=== PATIENT | female | born 1970 | race Two or more races ===

== ENCOUNTER → 2019-02-23 | Outpatient (CLI) | payer BC ==
[2019-02-23 17:22] LABS: ABSOLUTE BASOPHILS # (AUTO) 0.1 10^3/uL (0.0-0.2); ABSOLUTE EOSINOPHILS # (AUTO) 0.2 10^3/uL (0.0-0.6); ABSOLUTE LYMPHOCYTES (AUTO) 2.4 10^3/uL (0.5-4.7); ABSOLUTE MONOCYTES (AUTO) 0.9 10^3/uL (0.1-1.4); ABSOLUTE NEUT (AUTO) 6.8 10^3/uL (1.7-8.2); BASOPHILS % (AUTO) 1.2 % (0-2); EOSINOPHILS % (AUTO) 1.8 % (0-6); HEMATOCRIT 39.7 % (36.0-47.0); HEMOGLOBIN 13.5 g/dL (12.0-15.5); MEAN CORPUSCULAR HEMOGLOBIN 33.5 pg (27.0-33.4); MEAN CORPUSCULAR HGB CONC 33.9 g/dL (32.0-36.0); MEAN CORPUSCULAR VOLUME 99 fl (80-97); MONOCYTES % (AUTO) 8.7 % (3-13); PLATELET COUNT 441 10^3/uL (150-450); RED BLOOD COUNT 4.02 10^6/uL (3.72-5.28); RED CELL DISTRIBUTION WIDTH 14.1 % (11.5-14.0); SEGMENTED NEUTROPHILS % (AUTO) 65.3 % (42-78); TOTAL CELLS COUNTED % (AUTO) 100 %; WHITE BLOOD COUNT 10.5 10^3/uL (4.0-10.5)
== END ==
LOC: OD 15:40
DX: S83.231D Complex tear of medial meniscus, current injury, right knee, subsequent encounter (principal); X58.XXXD Exposure to other specified factors, subsequent encounter
CPT/HCPCS: 36415; 85025

== ENCOUNTER 2020-07-01 09:51 | Inpatient (IN) | payer BC ==
[2020-07-01] MEDS ORDERED: NORMAL SALINE 1000 ML 1,000 ML IV ONE (10:33)
[2020-07-01] MEDS ORDERED: DEXAMETHASONE SOD PHOS INJ 10 MG/1 ML VIAL IV ONE (10:36)
--- NOTE | 2020-07-01 10:56 | RADIOLOGY REPORT (SQ) ---
EXAM DESCRIPTION: CHEST SINGLE VIEW IMAGES COMPLETED DATE/TIME: 07/01/2020 10:23 am REASON FOR STUDY: sob COMPARISON: None. EXAM PARAMETERS: NUMBER OF VIEWS: One view. TECHNIQUE: Single frontal radiographic view of the chest acquired. RADIATION DOSE: NA LIMITATIONS: Portable technique. FINDINGS: LUNGS AND PLEURA: The appearance of hazy opacification of the right hemithorax may be due in part to technique/air gap. No focal consolidation. No pleural effusion. No pneumothorax. MEDIASTINUM AND HILAR STRUCTURES: No masses. Contour normal. HEART AND VASCULAR STRUCTURES: Heart normal in size. Normal vasculature. BONES: No acute findings. HARDWARE: None in the chest. OTHER: No other significant finding. IMPRESSION: Limited examination. Favor hazy opacification of the right hemithorax to be on the basi s of artifact ; acute pulmonary process is not excluded. Recommend dedicated PA/Lat chest imaging wh en feasible. TECHNICAL DOCUMENTATION: JOB ID: [id number] 2010 [employer]- All Rights Reserved Reading location - IP/workstation name: [email or web address]
[2020-07-01 11:04] LABS: ABSOLUTE LYMPHOCYTES (AUTO) 0.9 10^3/uL (0.5-4.7); ABSOLUTE MONOCYTES (AUTO) 0.4 10^3/uL (0.1-1.4); ABSOLUTE NEUT (AUTO) 4.6 10^3/uL (1.7-8.2); BASOPHILS % (AUTO) 0.4 % (0-2); EOSINOPHILS % (AUTO) 0.1 % (0-6); HEMATOCRIT 37.5 % (36.0-47.0); HEMOGLOBIN 13.1 g/dL (12.0-15.5); LYMPHOCYTES % (AUTO) 15.3 % (13-45); MEAN CORPUSCULAR HEMOGLOBIN 33.6 pg (27.0-33.4); MEAN CORPUSCULAR VOLUME 96 fl (80-97); MONOCYTES % (AUTO) 6.4 % (3-13); PLATELET COUNT 343 10^3/uL (150-450); RED CELL DISTRIBUTION WIDTH 15.4 % (11.5-14.0); SEGMENTED NEUTROPHILS % (AUTO) 77.8 % (42-78); TOTAL CELLS COUNTED % (AUTO) 100 %; VENOUS BLOOD BASE EXCESS -3.2 mmol/L; VENOUS BLOOD HCO3 21.5 mmol/L (20-32); VENOUS BLOOD PCO2 37.7 mmHg (35-63); VENOUS BLOOD PH 7.37 (7.30-7.42); WHITE BLOOD COUNT 5.8 10^3/uL (4.0-10.5)
[2020-07-01 11:16] LABS: INTERNATIONAL RATION (INR) 0.91; PROTHROMBIN TIME 12.5 SEC (11.4-15.4)
[2020-07-01 11:19] LABS: D-DIMER 1.53 ug/mL (0.00-0.50)
[2020-07-01 11:29] LABS: ALBUMIN 3.6 g/dL (3.5-5.0); ALKALINE PHOSPHATASE 93 U/L (38-126); ANION GAP 11 (5-19); ASPARTATE AMINO TRANSFERASE 64 U/L (14-36); BILIRUBIN,DIRECT 0.2 mg/dL (0.0-0.4); BILIRUBIN,TOTAL 0.3 mg/dL (0.2-1.3); BLOOD UREA NITROGEN 20 mg/dL (7-20); CALCIUM 7.8 mg/dL (8.4-10.2); CARBON DIOXIDE 24 mmol/L (22-30); CHLORIDE 87 mmol/L (98-107); GLUCOSE 119 mg/dL (75-110); POTASSIUM 3.2 mmol/L (3.6-5.0); TOTAL PROTEIN 6.9 g/dL (6.3-8.2)
[2020-07-01 12:04] LABS: C-REACTIVE PROTEIN 192.3 mg/L (<10.0)
[2020-07-01 12:48] LABS: A TYPE INFLUENZA AG NEGATIVE (NEGATIVE); B INFLUENZA AG NEGATIVE (NEGATIVE)
--- NOTE | 2020-07-01 13:37 | RADIOLOGY REPORT (SQ) ---
EXAM DESCRIPTION: CTA CHEST IMAGES COMPLETED DATE/TIME: 07/01/2020 12:13 pm REASON FOR STUDY: sobr/covid positive COMPARISON: Chest radiograph same date. TECHNIQUE: CT scan of the chest performed using helical scanning technique with dynamic intravenous contrast injection. Images reviewed with lung, soft tissue and bone windows. Reconstructed coronal and sagittal MPR images reviewed. Additional 3 dimensional post-processing performed to develop Maximal Intensity Projection images (CA P). All images stored on PACS. All CT scanners at this facility use dose modulation, iterative reconstruction, and/or weight based d osing when appropriate to reduce radiation dose to as low as reasonably achievable (ALARA). [facility]: Dose Right [facility]: CareDose [facility]: Dose Right [facility]: Teradose 4D [facility]: Info CONTRAST TYPE AND DOSE: contrast/concentration: Isovue 350.00 mmol/ml; Total Contrast Delivered: 75. 0 ml; Total Saline Delivered: 78.0 ml Contrast bolus optimized for the pulmonary arteries. Not diagnostic for the aorta. RENAL FUNCTION: GFR > 60. RADIATION DOSE: CT Rad equipment meets quality standard of care and radiation dose reduction techniq ues were employed. CTDIvol: 2.8 - 15.5 mGy. DLP: 581 mGy-cm. . LIMITATIONS: None. FINDINGS: LUNGS AND PLEURA: Trachea has normal caliber and appearance. No bronchial wall thickening or bronchiectasis. There is diffuse ground-glass attenuation throughout both lungs with relative sp aring of the superior segment left lower lobe. No focal confluent consolidation. Several solid pulm onary nodules are noted in the right lower lobe measuring up to 6 mm (image 33). No pleural effusion or pneumothorax. AORTA AND GREAT VESSELS: No aneurysm. Contrast bolus not optimized for the aorta. HEART: No pericardial effusion. No significant coronary artery calcifications. PULMONARY ARTERIES: No emboli visualized in the main pulmonary arteries or the segmental branches. HILAR AND MEDIASTINAL STRUCTURES: No identified masses or abnormal nodes. HARDWARE: None in the chest. UPPER ABDOMEN: Small hiatal hernia. Severe hepatic steatosis. THYROID AND OTHER SOFT TISSUES: No masses. No adenopathy. BONES: No acute or significant finding. 3D MIPS: Confirm above findings. OTHER: No other significant finding. IMPRESSION: 1. Diffuse ground-glass attenuation throughout both lungs, consistent with multifocal pneumonia. Sev eral areas demonstrate discrete solid nodularity. A follow-up CT of the chest in 3 months is recomme nded to confirm complete resolution. Commonly reported imaging features of COVID-19 pneumonia are p resent. Other processes such as influenza pneumonia and organizing pneumonia, as can be seen with roderick g toxicity and connective tissue disease, can cause a similar imaging pattern. PneTyp 2. Severe hepatic steatosis. 3. Small hiatal hernia. 4. No pulmonary embolism. COMMENT: Quality ID # [id number]: Final reports with documentation of one or more dose reduction techniques (e.g., Automated exposure control, adjustment of the mA and/or kV according to patient size, use of iterative reconstruction technique) TECHNICAL DOCUMENTATION: JOB ID: [id number] 2010 [employer]- All Rights Reserved Reading location - IP/workstation name: [email or web address]
[2020-07-01] MEDS ORDERED: CALCIUM GLUCONATE 1000 MG/10 ML INJ IV ONE (13:52)
[2020-07-01] MEDS ORDERED: NORMAL SALINE 500 ML IV ONE (13:53)
--- NOTE | 2020-07-01 13:59 | EKG REPORT ---
SEVERITY:- DEFECTIVE ECG - SINUS RHYTHM PROBABLE INFERIOR INFARCT, OLD CONSIDER ANTERIOR INFARCT REPEAT EKG WITH NO BASELINE TREMORS SOON FEASIBLE. : Confirmed by: Collin Hatch MD 01-Jul-2020 13:59:18
[2020-07-01] MEDS: POTASSI CL 20 MEQ/50 ML RIDER 20 MEQ/50 ML RTUPB IV SCH ×2 (14:20→16:41)
[2020-07-01 14:44] LABS: ARTERIAL BLOOD BASE EXCESS -4.1 mmol/L; ARTERIAL BLOOD FIO2 45%; ARTERIAL BLOOD H2CO3 0.98 mmol/L (1.05-1.35); ARTERIAL BLOOD HCO3 19.6 mmol/L (20-24); ARTERIAL BLOOD O2 SATURATION 96.7 % (94-98); ARTERIAL BLOOD PCO2 32.5 mmHg (35-45); ARTERIAL BLOOD PO2 86.5 mmHg (80-100); ARTERIAL BLOOD TOTAL CO2 20.6 mmol/L (21-25)
--- NOTE | 2020-07-01 14:55 | ER Document Report ---
Entered by CARLA MATHEWS SCRIBE 07/01/20 1027 Acting as scribe for:EMY JAMES MD ED Respiratory Problem - General Chief Complaint: Shortness Of Breath Stated Complaint: SHORT OF BREATH,COUGH,CONGESTION Primary Care Provider: SIRI IVERSON [NO COLIN MD] - Follow up as needed Mode of Arrival: Wheelchair Information source: Patient Notes: This 49 year old female patient with a history of hypertension who tested positive for COVID x2 weeks ago presents to the ED today for evaluation after waking up short of breath this morning. Nursing reports that the patient had O2 sats in the 70s on room air in the lobby. Patient reports associated fever, chills, sore throat, nausea without emesis, loss of taste/smell, pleuritic chest pain, and productive cough with bloody mucus. Denies any leg swelling. Denies history of asthma, COPD, or CHF. No known drug allergies. She mentions that she has been taking OTC Mucinex and Dayquil without resolve. TRAVEL OUTSIDE OF THE [place] IN LAST 30 DAYS: No - Related Data Allergies/Adverse Reactions: No Known Allergies Allergy (Verified 07/01/20 10:54) Past Medical History - General Information source: Patient - Social History Smoking Status: Unknown if Ever Smoked Smoking Education Provided: No Family History: Reviewed & Not Pertinent - Past Medical History Cardiac Medical History: Reports: Hx Hypertension Review of Systems - Review of Systems Constitutional: See HPI, Chills, Fever, Recent illness EENT: See HPI, Throat pain, Other - Loss of taste/smell Cardiovascular: Chest pain - pleuritic Respiratory: See HPI, Cough, Short of breath, Sputum Gastrointestinal: See HPI, Diarrhea, Nausea. denies: Vomiting Genitourinary: No symptoms reported Female Genitourinary: No symptoms reported Musculoskeletal: See HPI. denies: Leg swelling Skin: No symptoms reported Hematologic/Lymphatic: No symptoms reported Neurological/Psychological: No symptoms reported -: Yes All other systems reviewed and negative Physical Exam - Vital signs Vitals: Resp Pulse Ox 19 85 L 07/01/20 10:13 07/01/20 10:13 - General General appearance: Alert In distress: Moderate - secondary to respiratory distress - HEENT Head: Normocephalic, Atraumatic Eyes: Normal Pupils: PERRL - Respiratory Respiratory status: Respiratory distress - moderate, Tachypnea, Other - Hypoxic with O2 dats in the 70-80s via NRB Chest status: Pain with cough, Pain with deep breathing Breath sounds: Decreased air movement - Diminished breath sounds, Rales - in the left base Chest palpation: Normal - Cardiovascular Rhythm: Regular Heart sounds: Normal auscultation, S1 appreciated, S2 appreciated Murmur: No Friction rub: No Gallop: None auscultated - Abdominal Inspection: Normal Distension: No distension Bowel sounds: Normal Tenderness: Nontender - Abdomen soft Organomegaly: No organomegaly - Back Back: Normal, Nontender - Extremities General upper extremity: Normal inspection General lower extremity: Normal inspection. No: Edema - Neurological Neuro grossly intact: Yes Orientation: AAOx4 Gilbert Coma Scale Eye Opening: Spontaneous Gilbert Coma Scale Verbal: Oriented Gilbert Coma Scale Motor: Obeys Commands Gilbert Coma Scale Total: 15 - Psychological Associated symptoms: Normal affect, Normal mood - Skin Skin Temperature: Warm Skin Moisture: Dry Skin Color: Normal Course - Re-evaluation Re-evalutation: 07/01/20 17:33 Patient presented with extreme shortness of breath, fever,. Patient has known positive COVID-19 2 weeks ago from her urgent care clinic test. 1 week ago patient began to have shortness of breath worsening. - Vital Signs Vital signs: Temp Pulse Resp BP Pulse Ox 36 H 121/89 H 89 L 07/01/20 17:01 07/01/20 17:01 07/01/20 17:01 Vital signs unstable respiratory rate 36 with a pulse ox of 89. Patient was placed on a nonrebreather facemask without significant improvement therefore patient was placed on BiPAP. Once on BiPAP patient is had improved pulse oximetry and less tachypnea. - Laboratory Results Result Diagrams: 07/01/20 10:40 07/01/20 10:40 Laboratory Results Interpreted: 07/01/20 07/01/20 07/01/20 10:40 10:40 10:40 MCH 33.6 H RDW 15.4 H D-Dimer Carbonic Acid ABG pCO2 ABG HCO3 ABG Total CO2 Sodium 122.0 L Potassium 3.2 L Chloride 87 L Creatinine 1.40 H Est GFR ( Amer) 49 L Est GFR (MDRD) Non-Af 40 L Glucose 119 H Calcium 7.8 L AST 64 H Lactate Dehydrogenase 687 H C-Reactive Protein 192.3 H NT-Pro-B Natriuret Pep Urine Blood SARS-CoV-2 Rap RNA(RT-PCR) 07/01/20 07/01/20 07/01/20 10:40 10:40 12:13 MCH RDW D-Dimer 1.53 H Carbonic Acid ABG pCO2 ABG HCO3 ABG Total CO2 Sodium Potassium Chloride Creatinine Est GFR ( Amer) Est GFR (MDRD) Non-Af Glucose Calcium AST Lactate Dehydrogenase C-Reactive Protein NT-Pro-B Natriuret Pep 158 H Urine Blood SARS-CoV-2 Rap RNA(RT-PCR) POSITIVE H 07/01/20 07/01/20 14:25 15:45 MCH RDW D-Dimer Carbonic Acid 0.98 L ABG pCO2 32.5 L ABG HCO3 19.6 L ABG Total CO2 20.6 L Sodium Potassium Chloride Creatinine Est GFR ( Amer) Est GFR (MDRD) Non-Af Glucose Calcium AST Lactate Dehydrogenase C-Reactive Protein NT-Pro-B Natriuret Pep Urine Blood MODERATE H SARS-CoV-2 Rap RNA(RT-PCR) Patient has metabolic derangement with a sodium of 122, potassium of 3.2, creatinine 1.4 increased LDH increase C-reactive protein. Critical Laboratory Results Reviewed: Yes Attending or Supervising Physician who Reviewed Labs: EMY JAMES Radiology Results Radiology Results Interpreted: 07/01/20 13:38 Chest X-Ray 07/01/20 10:12 IMPRESSION: Limited examination. Favor hazy opacification of the right hemithorax to be on the basis of artifact ; acute pulmonary process is not ex cluded. Recommend dedicated PA/Lat chest imaging when feasible. Chest/Abdomen CTA 07/01/20 12:02 IMPRESSION: 1. Diffuse ground-glass attenuation throughout both lungs, consistent with multifocal pneumonia. Several areas demonstrate discrete solid nodularity. A follow-up CT of the chest in 3 months is recommended to confirm complete resolution. Commonly reported imaging features of COVID-19 pneumonia are present. Other processes such as influenza pneumonia and organizing pneumonia, as can be seen with drug toxicity and connective tissue disease, can cause a si milar imaging pattern. PneTyp 2. Severe hepatic steatosis. 3. Small hiatal hernia. 4. No pulmonary embolism. 07/01/20 17:36 Chest x-ray shows hazy opacification in the right hemithorax. CTA angiogram of the chest and abdomen shows diffuse groundglass in both lungs with multifocal pneumonia there is also discrete solid nodularity. Features of COVID-19 pneumonia present also severe hepatic steatosis small hiatal hernia and no evidence of pulmonary embolism. Critical Radiology Results Reviewed: Yes Attending or Supervising Physician who Reviewed Radiology: EMY JAMES - EKG Interpretation by Me Additional EKG results interpreted by me: 07/01/20 17:31 Twelve-lead EKG today at 1153 shows normal sinus rhythm artifact is present on this EKG and should be repeated once patient's not shimmering shivering. Nonetheless ventricular rate 81 left and atrial abnormality. Intraventricular conduction delay with a atypical right bundle branch block probable old inferior infarct consideration for an anterior infarct recommend that EKG be repeated. Critical Care Note - Critical Care Note Total time excluding time spent on procedures (mins): 45 - Patient with extreme shortness of breath on arrival requiring supplemental O2 support and eventually requiring BiPAP to maintain saturation over 90. Patient is COVID-19 multifocal pneumonia and and some metabolic derangements with sodium 122 potassium 3.2 creatinine up to 1.4. Discharge - Discharge Clinical Impression: Lab test positive for detection of COVID-19 virus, Pneumonia due to COVID-19 virus, Shortness of breath Condition: Serious Disposition: ADMITTED INPATIENT Admitting Provider: Qian Unit Admitted: [facility] Referrals: LOCAL,NO [NO LOCAL MD] - Follow up as needed I personally performed the services described in the documentation, reviewed and edited the documentation which was dictated to the scribe in my presence, and it accurately records my words and actions.
[2020-07-01 16:07] LABS: APPEARANCE,URINE CLEAR; BILIRUBIN,URINE NEGATIVE (NEGATIVE); COLOR,URINE STRAW; GLUCOSE, URINE NEGATIVE (NEGATIVE); KETONES,URINE NEGATIVE (NEGATIVE); LEUKOCYTE ESTERASE,URINE NEGATIVE (NEGATIVE); NITRITE,URINE NEGATIVE (NEGATIVE); PROTEIN,URINE NEGATIVE (NEGATIVE); UROBILINOGEN,URINE NEGATIVE mg/dL (<2.0)
--- NOTE | 2020-07-01 18:27 | PDOC H&P ---
History of Present Illness Admission Date/PCP: 07/01/20 15:34 Patient complains of: Shortness of breath History of Present Illness: SERGIO BASHIR is a 49 year old female with a past medical history of hypertension and depression who tested positive for Covid several weeks ago. She states over the last several days she has been noticing increasing shortness of breath. Yesterday the shortness of breath was more pronounced now as well as her cough. She reports coughing up some brownish tinged mucus with occasional blood streaks. Although short of breath she was able to rest and recover after 10 to 20 minutes but today the shortness of breath was worse and she presented to the emergency room. Imaging reveals Covid pneumonia. Past Medical History Cardiac Medical History: Reports: Hypertension Psychiatric Medical History: Reports: Depression Past Surgical History Past Surgical History: Reports: Orthopedic Surgery - Arthroscopy right knee Social History Information Source: Patient Lives with: Family Smoking Status: Unknown if Ever Smoked Electronic Cigarette use?: No Frequency of Alcohol Use: None Hx Recreational Drug Use: No Hx Prescription Drug Abuse: No - Advance Directive Resuscitation Status: Full Code Surrogate healthcare decision maker:: Family History Family History: Reviewed & Not Pertinent Parental Family History Reviewed: Yes Children Family History Reviewed: Yes Sibling(s) Family History Reviewed.: Yes Medication/Allergy Allergies/Adverse Reactions: No Known Allergies Allergy (Verified 07/01/20 10:54) Review of Systems All systems: reviewed and no additional remarkable complaints except as stated Constitutional: PRESENT: fever(s), headache(s) Respiratory: PRESENT: cough, dyspnea, sputum Gastrointestinal: PRESENT: diarrhea - For several days last week Musculoskeletal: PRESENT: back pain, other - Chest and back from repeated coughing Physical Exam Vital Signs: Temp Pulse Resp BP Pulse Ox 36 H 140/93 H 89 L 07/01/20 17:31 07/01/20 17:31 07/01/20 17:31 Intake & Output 06/30/20 07/01/20 07/02/20 06:59 06:59 06:59 Intake Total 1050 Balance 1050 General appearance: PRESENT: cooperative, severe distress, well-developed Head exam: PRESENT: atraumatic, normocephalic Ear exam: PRESENT: normal external ear exam. ABSENT: bleeding, drainage Mouth exam: PRESENT: other - BiPAP mask in place Neck exam: ABSENT: carotid bruit, JVD, lymphadenopathy Respiratory exam: PRESENT: rales, symmetrical, tachypnea, other - Markedly increased work of breathing. ABSENT: rhonchi, wheezes Cardiovascular exam: PRESENT: RRR, +S1, +S2, other - Difficult to auscultate due to BiPAP. ABSENT: bradycardia, diastolic murmur, irregular rhythm, systolic murmur, tachycardia GI/Abdominal exam: PRESENT: normal bowel sounds, soft. ABSENT: distended, tende rness Rectal exam: PRESENT: deferred Gentrourinary exam: ABSENT: indwelling catheter Extremities exam: ABSENT: calf tenderness, pedal edema Musculoskeletal exam: PRESENT: ambulatory, normal inspection. ABSENT: deformity, dislocation Neurological exam: PRESENT: alert, awake, oriented to person, oriented to place, oriented to time, oriented to situation, CN II-XII grossly intact. ABSENT: altered Psychiatric exam: PRESENT: anxious, appropriate affect - Affect reflects her clinical condition. ABSENT: agitated Focused psych exam: ABSENT: delusional, paranoid, restlessness Skin exam: PRESENT: dry, normal color, warm. ABSENT: rash Results Laboratory Results: 07/01/20 10:40 07/01/20 10:40 07/01/20 07/01/20 07/01/20 10:40 10:40 10:40 WBC 5.8 RBC 3.90 Hgb 13.1 Hct 37.5 MCV 96 MCH 33.6 H MCHC 35.0 RDW 15.4 H Plt Count 343 Seg Neutrophils % 77.8 Carbonic Acid HCO3/H2CO3 Ratio ABG pH ABG pCO2 ABG pO2 ABG HCO3 ABG O2 Saturation ABG Base Excess VBG pH 7.37 VBG pCO2 37.7 VBG HCO3 21.5 VBG Base Excess -3.2 FiO2 Sodium 122.0 L Potassium 3.2 L Chloride 87 L Carbon Dioxide 24 Anion Gap 11 BUN 20 Creatinine 1.40 H Est GFR ( Amer) 49 L Glucose 119 H Lactic Acid Calcium 7.8 L Magnesium Ferritin Total Bilirubin 0.3 AST 64 H Alkaline Phosphatase 93 C-Reactive Protein Total Protein 6.9 Albumin 3.6 Urine Color Urine Appearance Urine pH Ur Specific [place] Urine Protein Urine Glucose (UA) Urine Ketones Urine Blood Urine Nitrite Ur Leukocyte Esterase Urine WBC (Auto) Urine RBC (Auto) 07/01/20 07/01/20 07/01/20 10:40 10:40 10:40 WBC RBC Hgb Hct MCV MCH MCHC RDW Plt Count Seg Neutrophils % Carbonic Acid HCO3/H2CO3 Ratio ABG pH ABG pCO2 ABG pO2 ABG HCO3 ABG O2 Saturation ABG Base Excess VBG pH VBG pCO2 VBG HCO3 VBG Base Excess FiO2 Sodium Potassium Chloride Carbon Dioxide Anion Gap BUN Creatinine Est GFR ( Amer) Glucose Lactic Acid 1.9 Calcium Magnesium 2.0 Ferritin 121.00 Total Bilirubin AST Alkaline Phosphatase C-Reactive Protein 192.3 H Total Protein Albumin Urine Color Urine Appearance Urine pH Ur Specific [place] Urine Protein Urine Glucose (UA) Urine Ketones Urine Blood Urine Nitrite Ur Leukocyte Esterase Urine WBC (Auto) Urine RBC (Auto) 07/01/20 07/01/20 14:25 15:45 WBC RBC Hgb Hct MCV MCH MCHC RDW Plt Count Seg Neutrophils % Carbonic Acid 0.98 L HCO3/H2CO3 Ratio 20:1 ABG pH 7.40 ABG pCO2 32.5 L ABG pO2 86.5 ABG HCO3 19.6 L ABG O2 Saturation 96.7 ABG Base Excess -4.1 VBG pH VBG pCO2 VBG HCO3 VBG Base Excess FiO2 45% Sodium Potassium Chloride Carbon Dioxide Anion Gap BUN Creatinine Est GFR ( Amer) Glucose Lactic Acid Calcium Magnesium Ferritin Total Bilirubin AST Alkaline Phosphatase C-Reactive Protein Total Protein Albumin Urine Color STRAW Urine Appearance CLEAR Urine pH 7.0 Ur Specific [place] 1.010 Urine Protein NEGATIVE Urine Glucose (UA) NEGATIVE Urine Ketones NEGATIVE Urine Blood MODERATE H Urine Nitrite NEGATIVE Ur Leukocyte Esterase NEGATIVE Urine WBC (Auto) 0 Urine RBC (Auto) 0 07/01/20 10:40 NT-Pro-B Natriuret Pep 158 H Impressions: Chest X-Ray 07/01/20 10:12 IMPRESSION: Limited examination. Favor hazy opacification of the right hemithorax to be on the basis of artifact ; acute pulmonary process is not excluded. Recommend dedicated PA/Lat chest imaging when feasible. Chest/Abdomen CTA 07/01/20 12:02 IMPRESSION: 1. Diffuse ground-glass attenuation throughout both lungs, consistent with multifocal pneumonia. Several areas demonstrate discrete solid nodularity. A follow-up CT of the chest in 3 months is recommended to confirm complete resolution. Commonly reported imaging features of COVID-19 pneumonia are present. Other processes such as influenza pneumonia and organizing pneumonia, as can be seen with drug toxicity and connective tissue disease, can cause a similar imaging pattern. PneTyp 2. Severe hepatic steatosis. 3. Small hiatal hernia. 4. No pulmonary embolism. Assessment and Plan - Diagnosis (1) Acute respiratory failure with hypoxia Is this a current diagnosis for this admission?: Yes (2) Pneumonia due to COVID-19 virus Is this a current diagnosis for this admission?: Yes (3) Lab test positive for detection of COVID-19 virus Is this a current diagnosis for this admission?: Yes (4) Hypertension Qualifiers: Hypertension type: essential hypertension Qualified Code(s): I10 - Essential (primary) hypertension Is this a current diagnosis for this admission?: Yes (5) Depression Qualifiers: Depression Type: unspecified Qualified Code(s): F32.9 - Major depressive disorder, single episode, unspecified Is this a current diagnosis for this admission?: Yes (6) Hyponatremia Is this a current diagnosis for this admission?: Yes (7) Hypokalemia Is this a current diagnosis for this admission?: Yes (8) Hypocalcemia Is this a current diagnosis for this admission?: Yes - Plan Summary Summary: Covid pneumonia with acute hypoxic respiratory failure-intravenous steroids, supplements, remdesivir and ivermectin. Currently on BiPAP. Wean as tolerated. She had discolored sputum and she will be on antibiotic therapy to cover bacterial pneumonia as well. Despite blood-streaked sputum we will initiate therapeutic Lovenox at this time and monitor closely as her D-dimer was positive. Hypokalemia, hypocalcemia and hyponatremia-combination of infection, diarrhea and poor intake. Provide normal saline and supplement electrolytes based on laboratory studies Hypertension-pressures were low on admission. Currently holding antihypertensive medications. Resume based on blood pressure. Depression-holding citalopram temporarily. High risk interaction with azithromycin. Will likely resume within a day or 2. We will need to monitor QT interval. - Time Time Spent with patient: 35 or more minutes Medications reviewed and adjusted accordingly: Yes Anticipated Discharge Disposition: Home with Home Health Anticipated Discharge Timeframe: Unknown - Inpatient Certification Based on my medical assessment, after consideration of the patient's comorbidities, presenting symptoms, or acuity I expect that the services needed warrant INPATIENT care.: Yes I certify that my determination is in accordance with my understanding of Medicare's requirements for reasonable and necessary INPATIENT services [42 CFR 412.3e].: Yes Medical Necessity: Need Close Monitoring Due to Risk of Patient Decompensation, Need For IV Fluids, Need For Continuous Telemetry Monitoring, Need for IV Antibiotics Post Hospital Care: D/C or Transfer Summary
[2020-07-01] MEDS ORDERED: IVERMECTIN 3 MG TABLET PO ONE (19:00)
[2020-07-01] MEDS: ALBUTEROL SULFATE HFA (90 MCG/PUFF) 8 GM MDI IH SCH ×2 (19:17→22:20)
[2020-07-01] MEDS: ACETAMINOPHEN 325 MG TABLET PO PRN (19:31)
[2020-07-01] MEDS: GUAIFENESIN SYRP 200 MG/10 ML UDC PO PRN (19:31)
[2020-07-01] MEDS ORDERED: IVERMECTIN 3 MG TABLET ONE (19:42)
[2020-07-01] MEDS: MELATONIN 5 MG TABLET PO SCH (22:19)
[2020-07-01] MEDS: CEFTRIAXONE 1 GM/D5W RTU 1 GM/50 ML RTUPB IV SCH (22:19)
[2020-07-01] MEDS: METHYLPREDNISOLONE INJ 40 MG/1 ML SDV IV SCH (22:20)
[2020-07-01] MEDS ORDERED: ALBUTEROL SULFATE 0.083% NEB 2.5 MG/3 ML AMPUL NEB PRN (22:21)
[2020-07-01] MEDS ORDERED: LORAZEPAM INJ 2 MG/1 ML VIAL IV PRN (22:23)
[2020-07-01] MEDS: NORMAL SALINE 1000 ML 1,000 ML IV PRN (22:32)
[2020-07-02] MEDS: MORPHINE SULFATE 10 MG/ML INJ IV PRN ×5 (00:14→21:22)
[2020-07-02] MEDS: ALBUTEROL SULFATE HFA (90 MCG/PUFF) 8 GM MDI IH SCH ×6 (01:32→21:37)
[2020-07-02] MEDS: METHYLPREDNISOLONE INJ 40 MG/1 ML SDV IV SCH ×3 (05:40→23:53)
[2020-07-02] MEDS: PANTOPRAZOLE SODIUM 40 MG TABLET.DR PO SCH (05:40)
[2020-07-02 06:18] LABS: ABSOLUTE LYMPHOCYTES (AUTO) 0.7 10^3/uL (0.5-4.7); ABSOLUTE MONOCYTES (AUTO) 0.6 10^3/uL (0.1-1.4); ABSOLUTE NEUT (AUTO) 7.1 10^3/uL (1.7-8.2); BASOPHILS % (AUTO) 0.3 % (0-2); HEMATOCRIT 37.8 % (36.0-47.0); HEMOGLOBIN 13.2 g/dL (12.0-15.5); LYMPHOCYTES % (AUTO) 8.8 % (13-45); MEAN CORPUSCULAR HEMOGLOBIN 33.7 pg (27.0-33.4); MEAN CORPUSCULAR HGB CONC 34.8 g/dL (32.0-36.0); MEAN CORPUSCULAR VOLUME 97 fl (80-97); MONOCYTES % (AUTO) 6.8 % (3-13); PLATELET COUNT 386 10^3/uL (150-450); RED CELL DISTRIBUTION WIDTH 15.3 % (11.5-14.0); SEGMENTED NEUTROPHILS % (AUTO) 84.1 % (42-78); TOTAL CELLS COUNTED % (AUTO) 100 %; WHITE BLOOD COUNT 8.4 10^3/uL (4.0-10.5)
[2020-07-02 06:42] LABS: ALKALINE PHOSPHATASE 102 U/L (38-126); ANION GAP 12 (5-19); ASPARTATE AMINO TRANSFERASE 68 U/L (14-36); BILIRUBIN,DIRECT 0.3 mg/dL (0.0-0.4); BILIRUBIN,TOTAL 0.5 mg/dL (0.2-1.3); BLOOD UREA NITROGEN 12 mg/dL (7-20); CALCIUM 8.3 mg/dL (8.4-10.2); CARBON DIOXIDE 20 mmol/L (22-30); CHLORIDE 99 mmol/L (98-107); GLUCOSE 130 mg/dL (75-110); TOTAL PROTEIN 7.4 g/dL (6.3-8.2)
[2020-07-02 06:46] LABS: POTASSIUM 4.2 mmol/L (3.6-5.0)
[2020-07-02] MEDS: NORMAL SALINE 1000 ML 1,000 ML IV PRN (06:59)
[2020-07-02 07:18] LABS: ALBUMIN 3.9 g/dL (3.5-5.0)
[2020-07-02] MEDS ORDERED: REMDESIVIR 200 MG in NORMAL SALINE 250 ML IV ONE (10:00)
[2020-07-02] MEDS ORDERED: AZITHROMYCIN 500 MG in DEXTROSE 5%-WATER 250 ML IV SCH (10:00)
[2020-07-02] MEDS ORDERED: INFLUENZA QUAD (6MOS+) 2020-21 VAC 0.5 ML SYR IM ONE (10:15)
[2020-07-02] MEDS: ENOXAPARIN SODIUM INJ 100 MG/1 ML DISP.SYRIN SUBCUT SCH ×2 (11:30→21:21)
[2020-07-02] MEDS: ASCORBIC ACID 500 MG TABLET PO SCH ×2 (11:30→17:19)
[2020-07-02] MEDS: CHOLECALCIFEROL (D3) 1,000 UNIT (25 MCG) TABLET PO SCH (11:30)
[2020-07-02] MEDS: ZINC SULFATE 220 MG CAPSULE PO SCH (11:30)
[2020-07-02] MEDS: AZITHROMYCIN 250 MG TABLET PO SCH (11:55)
--- NOTE | 2020-07-02 12:17 | PDOC PROGRESS REPORT ---
Subjective Date:: 07/02/20 Subjective:: Patient still exhibits increased work of breathing. Remains on BiPAP. Still wi th tachypnea. Starting remdesivir today. Reason For Visit: COVID PNEUMONIA,HYPERTENSION,DEPRESSION,DIARRHEA Physical Exam Vital Signs: Temp Pulse Resp BP Pulse Ox 98 F 33 H 134/84 H 99 07/02/20 09:58 07/02/20 11:18 07/02/20 09:02 07/02/20 11:18 Intake & Output 07/01/20 07/02/20 07/03/20 06:59 06:59 06:59 Intake Total 2150 Balance 2150 Weight 84.822 kg General appearance: PRESENT: cooperative, well-developed, other - Moderate dis tress. BiPAP in place. Still tachypneic. Head exam: PRESENT: atraumatic, normocephalic Respiratory exam: PRESENT: rales, symmetrical, tachypnea, wheezes - Sporadic wheeze, other - Increased work of breathing with decreased inspiratory phase. ABSENT: rhonchi Cardiovascular exam: PRESENT: RRR, +S1, +S2. ABSENT: bradycardia, diastolic murmur, irregular rhythm, systolic murmur, tachycardia GI/Abdominal exam: PRESENT: diminished bowel sounds, soft. ABSENT: tenderness Rectal exam: PRESENT: deferred Gentrourinary exam: ABSENT: indwelling catheter Extremities exam: ABSENT: pedal edema Musculoskeletal exam: PRESENT: deformity, dislocation, normal inspection. ABSENT: ambulatory - Secondary to dyspnea Neurological exam: PRESENT: alert, awake, oriented to person, oriented to place, oriented to time, oriented to situation, CN II-XII grossly intact. ABSENT: altered Psychiatric exam: PRESENT: appropriate affect - Affect reflects her serious cli nical condition.. ABSENT: agitated, anxious Focused psych exam: ABSENT: delusional, paranoid, restlessness Skin exam: PRESENT: dry, warm, other - Facial flushing. ABSENT: rash Results Laboratory Results: 07/02/20 05:38 07/02/20 05:38 07/01/20 07/01/20 07/01/20 10:40 14:25 15:45 WBC RBC Hgb Hct MCV MCH MCHC RDW Plt Count Seg Neutrophils % Carbonic Acid 0.98 L HCO3/H2CO3 Ratio 20:1 ABG pH 7.40 ABG pCO2 32.5 L ABG pO2 86.5 ABG HCO3 19.6 L ABG O2 Saturation 96.7 ABG Base Excess -4.1 FiO2 45% Sodium Potassium Chloride Carbon Dioxide Anion Gap BUN Creatinine Est GFR ( Amer) Glucose Calcium Magnesium 2.0 Total Bilirubin AST Alkaline Phosphatase Total Protein Albumin Urine Color STRAW Urine Appearance CLEAR Urine pH 7.0 Ur Specific [place] 1.010 Urine Protein NEGATIVE Urine Glucose (UA) NEGATIVE Urine Ketones NEGATIVE Urine Blood MODERATE H Urine Nitrite NEGATIVE Ur Leukocyte Esterase NEGATIVE Urine WBC (Auto) 0 Urine RBC (Auto) 0 07/02/20 07/02/20 05:38 05:38 WBC 8.4 RBC 3.90 Hgb 13.2 Hct 37.8 MCV 97 MCH 33.7 H MCHC 34.8 RDW 15.3 H Plt Count 386 Seg Neutrophils % 84.1 H Carbonic Acid HCO3/H2CO3 Ratio ABG pH ABG pCO2 ABG pO2 ABG HCO3 ABG O2 Saturation ABG Base Excess FiO2 Sodium 131.0 L Potassium 4.2 D Chloride 99 Carbon Dioxide 20 L Anion Gap 12 BUN 12 Creatinine 0.70 Est GFR ( Amer) > 60 Glucose 130 H Calcium 8.3 L Magnesium Total Bilirubin 0.5 AST 68 H Alkaline Phosphatase 102 Total Protein 7.4 Albumin 3.9 Urine Color Urine Appearance Urine pH Ur Specific [place] Urine Protein Urine Glucose (UA) Urine Ketones Urine Blood Urine Nitrite Ur Leukocyte Esterase Urine WBC (Auto) Urine RBC (Auto) 07/01/20 10:40 NT-Pro-B Natriuret Pep 158 H Impressions: Chest X-Ray 07/01/20 10:12 IMPRESSION: Limited examination. Favor hazy opacification of the right hemithorax to be on the basis of artifact ; acute pulmonary process is not excluded. Recommend dedicated PA/Lat chest imaging when feasible. Chest/Abdomen CTA 07/01/20 12:02 IMPRESSION: 1. Diffuse ground-glass attenuation throughout both lungs, consistent with multifocal pneumonia. Several areas demonstrate discrete solid nodularity. A follow-up CT of the chest in 3 months is recommended to confirm complete resolution. Commonly reported imaging features of COVID-19 pneumonia are present. Other processes such as influenza pneumonia and organizing pneumonia, as can be seen with drug toxicity and connective tissue disease, can cause a similar imaging pattern. PneTyp 2. Severe hepatic steatosis. 3. Small hiatal hernia. 4. No pulmonary embolism. Assessment and Plan - Diagnosis (1) Acute respiratory failure with hypoxia Is this a current diagnosis for this admission?: Yes (2) Pneumonia due to COVID-19 virus Is this a current diagnosis for this admission?: Yes (3) Lab test positive for detection of COVID-19 virus Is this a current diagnosis for this admission?: Yes (4) Hypertension Qualifiers: Hypertension type: essential hypertension Qualified Code(s): I10 - Essential (primary) hypertension Is this a current diagnosis for this admission?: Yes (5) Depression Qualifiers: Depression Type: unspecified Qualified Code(s): F32.9 - Major depressive disorder, single episode, unspecified Is this a current diagnosis for this admission?: Yes (6) Hyponatremia Is this a current diagnosis for this admission?: Yes (7) Hypokalemia Is this a current diagnosis for this admission?: Yes (8) Hypocalcemia Is this a current diagnosis for this admission?: Yes - Plan Summary Summary: 07/01/2020 Covid pneumonia with acute hypoxic respiratory failure-intravenous steroids, supplements, remdesivir and ivermectin. Currently on BiPAP. Wean as tolerated. She had discolored sputum and she will be on antibiotic therapy to cover bacterial pneumonia as well. Despite blood-streaked sputum we will initiate therapeutic Lovenox at this time and monitor closely as her D-dimer was positive. Hypokalemia, hypocalcemia and hyponatremia-combination of infection, diarrhea and poor intake. Provide normal saline and supplement electrolytes based on laboratory studies Hypertension-pressures were low on admission. Currently holding antihypertensive medications. Resume based on blood pressure. Depression-holding citalopram temporarily. High risk interaction with azithromycin. Will likely resume within a day or 2. We will need to monitor QT interval. 07/02/2020 Covid pneumonia-still with some respiratory distress. Unable to decrease FiO2 or BiPAP settings yet. Received first dose of ivermectin yesterday. Starting remdesivir. Temporarily increase methylprednisolone to 40 every 6. Monitor closely. Continue antibiotic regimen and supplements as well. Elevated [id number] therapeutic Lovenox. Recheck D-dimer tomorrow. Electrolyte abnormalities-serum potassium now normal. Serum sodium significantly improved up to 131. Serum calcium improved and at 8.3. Repeat inflammatory markers tomorrow. Depression-benzodiazepine therapy available. Holding citalopram due to interaction with azithromycin. - Time Time Spent with patient: Less than 15 minutes Medications reviewed and adjusted accordingly: Yes Anticipated Discharge Disposition: Unknown Anticipated Discharge Timeframe: Unknown
[2020-07-02] MEDS: LISINOPRIL 10 MG TABLET PO SCH (13:14)
[2020-07-02] MEDS: HYDROCHLOROTHIAZIDE 25 MG TABLET PO SCH (13:15)
[2020-07-02] MEDS: CEFTRIAXONE 1 GM/D5W RTU 1 GM/50 ML RTUPB IV SCH (21:20)
[2020-07-02] MEDS: MELATONIN 5 MG TABLET PO SCH (21:21)
[2020-07-02] MEDS: GUAIFENESIN SYRP 200 MG/10 ML UDC PO PRN (23:36)
[2020-07-03] MEDS: ALBUTEROL SULFATE HFA (90 MCG/PUFF) 8 GM MDI IH SCH ×3 (02:45→21:57)
[2020-07-03] MEDS: MORPHINE SULFATE 10 MG/ML INJ IV PRN ×4 (03:01→22:03)
[2020-07-03 05:12] LABS: HEMOGLOBIN 12.7 g/dL (12.0-15.5); MEAN CORPUSCULAR HEMOGLOBIN 33.1 pg (27.0-33.4); MEAN CORPUSCULAR HGB CONC 34.2 g/dL (32.0-36.0); MEAN CORPUSCULAR VOLUME 97 fl (80-97); PLATELET COUNT 378 10^3/uL (150-450); RED BLOOD COUNT 3.82 10^6/uL (3.72-5.28); RED CELL DISTRIBUTION WIDTH 15.2 % (11.5-14.0); WHITE BLOOD COUNT 9.9 10^3/uL (4.0-10.5)
[2020-07-03] MEDS: METHYLPREDNISOLONE INJ 40 MG/1 ML SDV IV SCH ×4 (05:59→23:31)
[2020-07-03] MEDS: PANTOPRAZOLE SODIUM 40 MG TABLET.DR PO SCH (05:59)
[2020-07-03 06:06] LABS: ALKALINE PHOSPHATASE 132 U/L (38-126); ANION GAP 14 (5-19); ASPARTATE AMINO TRANSFERASE 88 U/L (14-36); BILIRUBIN,DIRECT 0.3 mg/dL (0.0-0.4); BILIRUBIN,TOTAL 0.4 mg/dL (0.2-1.3); BLOOD UREA NITROGEN 9 mg/dL (7-20); C-REACTIVE PROTEIN 75.6 mg/L (<10.0); CALCIUM 8.7 mg/dL (8.4-10.2); CARBON DIOXIDE 17 mmol/L (22-30); CHLORIDE 100 mmol/L (98-107); GLUCOSE 133 mg/dL (75-110); POTASSIUM 3.9 mmol/L (3.6-5.0); TOTAL PROTEIN 7.3 g/dL (6.3-8.2)
[2020-07-03] MEDS: NORMAL SALINE 1000 ML 1,000 ML IV PRN ×2 (06:19→15:38)
[2020-07-03] MEDS ORDERED: (PENDING PHARMACY ID) (Lisinopril/Hydrochlorothiazide [Lisinopril-Hctz 20-25 Mg Tab] 1 EAC PO SCH (10:00)
[2020-07-03] MEDS ORDERED: IVERMECTIN 3 MG TABLET PO ONE (10:00)
[2020-07-03] MEDS: ASCORBIC ACID 500 MG TABLET PO SCH ×2 (10:14→17:22)
[2020-07-03] MEDS: ZINC SULFATE 220 MG CAPSULE PO SCH (10:14)
[2020-07-03] MEDS: CHOLECALCIFEROL (D3) 1,000 UNIT (25 MCG) TABLET PO SCH (10:15)
[2020-07-03] MEDS: HYDROCHLOROTHIAZIDE 25 MG TABLET PO SCH (10:18)
[2020-07-03] MEDS: AZITHROMYCIN 250 MG TABLET PO SCH (10:19)
[2020-07-03] MEDS: LISINOPRIL 10 MG TABLET PO SCH (10:19)
[2020-07-03] MEDS: ENOXAPARIN SODIUM INJ 100 MG/1 ML DISP.SYRIN SUBCUT SCH ×2 (10:27→21:56)
[2020-07-03] MEDS ORDERED: ENOXAPARIN SODIUM INJ 100 MG/1 ML DISP.SYRIN SUBCUT ONE (10:27)
[2020-07-03] MEDS: REMDESIVIR 100 MG in NORMAL SALINE 250 ML IV SCH (11:05)
--- NOTE | 2020-07-03 14:47 | PDOC PROGRESS REPORT ---
Subjective Date:: 07/03/20 Subjective:: Shortness of breath. No appetite Reason For Visit: COVID PNEUMONIA,HYPERTENSION,DEPRESSION,DIARRHEA Physical Exam Vital Signs: Temp Pulse Resp BP Pulse Ox 98.6 F 104 H 27 H 145/91 H 92 07/03/20 10:00 07/03/20 07:36 07/03/20 08:00 07/03/20 07:36 07/03/20 08:00 Intake & Output 07/02/20 07/03/20 07/04/20 06:59 06:59 06:59 Intake Total 2150 2590 250 Balance 2150 2590 250 Weight 84.822 kg 108.8 kg General appearance: PRESENT: no acute distress, cooperative Neck exam: ABSENT: JVD Respiratory exam: PRESENT: clear to auscultation kevin, symmetrical, unlabored. ABSENT: tachypnea, wheezes Cardiovascular exam: PRESENT: RRR, +S1, +S2. ABSENT: tachycardia GI/Abdominal exam: PRESENT: soft. ABSENT: rebound, rigid, tenderness Neurological exam: PRESENT: alert, awake, oriented to person, oriented to place, oriented to time Results Laboratory Results: 07/03/20 04:14 07/03/20 04:14 07/03/20 07/03/20 04:14 04:14 WBC 9.9 RBC 3.82 Hgb 12.7 Hct 37.0 MCV 97 MCH 33.1 MCHC 34.2 RDW 15.2 H Plt Count 378 Sodium 131.2 L Potassium 3.9 Chloride 100 Carbon Dioxide 17 L Anion Gap 14 BUN 9 Creatinine 0.61 Est GFR ( Amer) > 60 Glucose 133 H Calcium 8.7 Magnesium 2.4 H Ferritin 61.60 Total Bilirubin 0.4 AST 88 H Alkaline Phosphatase 132 H C-Reactive Protein 75.6 H Total Protein 7.3 Albumin 4.0 07/01/20 11:37 Throat Throat Culture - Final NORMAL [place] 07/01/20 10:40 NT-Pro-B Natriuret Pep 158 H Impressions: Chest X-Ray 07/01/20 10:12 IMPRESSION: Limited examination. Favor hazy opacification of the right hemithorax to be on the basis of artifact ; acute pulmonary process is not excluded. Recommend dedicated PA/Lat chest imaging when feasible. Chest/Abdomen CTA 07/01/20 12:02 IMPRESSION: 1. Diffuse ground-glass attenuation throughout both lungs, consistent with multifocal pneumonia. Several areas demonstrate discrete solid nodularity. A follow-up CT of the chest in 3 months is recommended to confirm complete resolution. Commonly reported imaging features of COVID-19 pneumonia are present. Other processes such as influenza pneumonia and organizing pneumonia, as can be seen with drug toxicity and connective tissue disease, can cause a similar imaging pattern. PneTyp 2. Severe hepatic steatosis. 3. Small hiatal hernia. 4. No pulmonary embolism. Assessment and Plan - Diagnosis (1) Pneumonia due to COVID-19 virus Is this a current diagnosis for this admission?: Yes Plan: Remdesivir day 2. Status post ivermectin Continue Solu-Medrol Continue multivitamins and zinc supplements Currently on azithromycin We will discontinue ceftriaxone. (2) Acute respiratory failure with hypoxia Is this a current diagnosis for this admission?: Yes Plan: This morning, patient is on BiPAP 12/10 at 100% FiO2. She is still BiPAP dependent. We will try to wean her FiO2 down to 90%. (3) Transaminitis Is this a current diagnosis for this admission?: Yes Plan: Likely secondary to viral infection. Will monitor. (4) Depression Qualifiers: Depression Type: unspecified Qualified Code(s): F32.9 - Major depressive disorder, single episode, unspecified Is this a current diagnosis for this admission?: Yes Plan: citalopram currently on hold due to interaction with azithromycin (5) Hypertension Qualifiers: Hypertension type: essential hypertension Qualified Code(s): I10 - Essential (primary) hypertension Is this a current diagnosis for this admission?: Yes (6) Hyponatremia Is this a current diagnosis for this admission?: Yes - Time Time Spent with patient: 15-24 minutes Anticipated Discharge Disposition: Home, Self Care Anticipated Discharge Timeframe: unknown
[2020-07-03] MEDS: GUAIFENESIN SYRP 200 MG/10 ML UDC PO PRN (16:06)
[2020-07-03] MEDS: MELATONIN 5 MG TABLET PO SCH (21:56)
[2020-07-03] MEDS: CALCIUM CARBONATE 500 MG TAB.CHEW PO PRN (23:31)
[2020-07-04] MEDS: ALBUTEROL SULFATE HFA (90 MCG/PUFF) 8 GM MDI IH SCH ×6 (02:25→21:20)
[2020-07-04 05:05] LABS: HEMATOCRIT 36.2 % (36.0-47.0); HEMOGLOBIN 12.3 g/dL (12.0-15.5); MEAN CORPUSCULAR HEMOGLOBIN 33.3 pg (27.0-33.4); MEAN CORPUSCULAR HGB CONC 34.1 g/dL (32.0-36.0); MEAN CORPUSCULAR VOLUME 98 fl (80-97); PLATELET COUNT 403 10^3/uL (150-450); RED CELL DISTRIBUTION WIDTH 15.3 % (11.5-14.0); WHITE BLOOD COUNT 12.3 10^3/uL (4.0-10.5)
[2020-07-04] MEDS: PANTOPRAZOLE SODIUM 40 MG TABLET.DR PO SCH (05:26)
[2020-07-04] MEDS: METHYLPREDNISOLONE INJ 40 MG/1 ML SDV IV SCH ×4 (05:26→23:41)
[2020-07-04] MEDS: MORPHINE SULFATE 10 MG/ML INJ IV PRN ×4 (05:30→23:41)
[2020-07-04] MEDS: NORMAL SALINE 1000 ML 1,000 ML IV PRN ×2 (05:37→23:48)
[2020-07-04 06:13] LABS: APPEARANCE,URINE CLEAR; BILIRUBIN,URINE NEGATIVE (NEGATIVE); COLOR,URINE YELLOW; GLUCOSE, URINE NEGATIVE (NEGATIVE); KETONES,URINE TRACE mg/dL (NEGATIVE); LEUKOCYTE ESTERASE,URINE NEGATIVE (NEGATIVE); NITRITE,URINE NEGATIVE (NEGATIVE); PROTEIN,URINE 100 mg/dL (NEGATIVE); URINE SPECIFIC GRAVITY 1.015; UROBILINOGEN,URINE NEGATIVE mg/dL (<2.0)
[2020-07-04] MEDS: ASCORBIC ACID 500 MG TABLET PO SCH ×2 (09:26→17:42)
[2020-07-04] MEDS: ZINC SULFATE 220 MG CAPSULE PO SCH (09:26)
[2020-07-04] MEDS: AZITHROMYCIN 250 MG TABLET PO SCH (09:26)
[2020-07-04] MEDS: HYDROCHLOROTHIAZIDE 25 MG TABLET PO SCH (09:27)
[2020-07-04] MEDS: CHOLECALCIFEROL (D3) 1,000 UNIT (25 MCG) TABLET PO SCH (09:27)
[2020-07-04] MEDS: ENOXAPARIN SODIUM INJ 100 MG/1 ML DISP.SYRIN SUBCUT SCH ×2 (09:28→21:49)
[2020-07-04] MEDS: LISINOPRIL 10 MG TABLET PO SCH (09:29)
[2020-07-04] MEDS: REMDESIVIR 100 MG in NORMAL SALINE 250 ML IV SCH (10:24)
--- NOTE | 2020-07-04 15:54 | PDOC PROGRESS REPORT ---
Subjective Date:: 07/04/20 Subjective:: Shortness of breath. No appetite. Able to eat a little earlier today. Will try some ensure. Reason For Visit: COVID PNEUMONIA,HYPERTENSION,DEPRESSION,DIARRHEA Physical Exam Vital Signs: Temp Pulse Resp BP Pulse Ox 98.6 F 68 24 H 118/67 96 07/04/20 11:53 07/04/20 14:00 07/04/20 12:22 07/04/20 11:53 07/04/20 12:22 Intake & Output 07/03/20 07/04/20 07/05/20 06:59 06:59 06:59 Intake Total 2590 3408 510 Output Total 450 Balance 2590 3408 60 Weight 108.8 kg 108.5 kg General appearance: PRESENT: no acute distress, cooperative Neck exam: ABSENT: JVD Respiratory exam: PRESENT: crackles, symmetrical, unlabored. ABSENT: tachypnea, wheezes Cardiovascular exam: PRESENT: RRR, +S1, +S2. ABSENT: tachycardia GI/Abdominal exam: PRESENT: soft. ABSENT: rebound, rigid, tenderness Neurological exam: PRESENT: alert, awake, oriented to person, oriented to place, oriented to time Results Laboratory Results: 07/04/20 04:11 07/03/20 04:14 07/04/20 07/04/20 04:11 05:44 WBC 12.3 H RBC 3.70 L Hgb 12.3 Hct 36.2 MCV 98 H MCH 33.3 MCHC 34.1 RDW 15.3 H Plt Count 403 Urine Color YELLOW Urine Appearance CLEAR Urine pH 7.0 Ur Specific [place] 1.015 Urine Protein 100 H Urine Glucose (UA) NEGATIVE Urine Ketones TRACE H Urine Blood MODERATE H Urine Nitrite NEGATIVE Ur Leukocyte Esterase NEGATIVE Urine WBC (Auto) 2 Urine RBC (Auto) 148 07/01/20 10:40 NT-Pro-B Natriuret Pep 158 H Impressions: Chest X-Ray 07/01/20 10:12 IMPRESSION: Limited examination. Favor hazy opacification of the right hemithorax to be on the basis of artifact ; acute pulmonary process is not excluded. Recommend dedicated PA/Lat chest imaging when feasible. Chest/Abdomen CTA 07/01/20 12:02 IMPRESSION: 1. Diffuse ground-glass attenuation throughout both lungs, consistent with multifocal pneumonia. Several areas demonstrate discrete solid nodularity. A follow-up CT of the chest in 3 months is recommended to confirm complete resolution. Commonly reported imaging features of COVID-19 pneumonia are present. Other processes such as influenza pneumonia and organizing pneumonia, as can be seen with drug toxicity and connective tissue disease, can cause a similar imaging pattern. PneTyp 2. Severe hepatic steatosis. 3. Small hiatal hernia. 4. No pulmonary embolism. Assessment and Plan - Diagnosis (1) Pneumonia due to COVID-19 virus Is this a current diagnosis for this admission?: Yes Plan: Remdesivir day 3. Status post ivermectin Continue Solu-Medrol Continue multivitamins and zinc supplements Currently on azithromycin We will discontinue ceftriaxone. Ensure with each tray (2) Acute respiratory failure with hypoxia Is this a current diagnosis for this admission?: Yes Plan: Still very hypoxic. This morning, patient is on BiPAP 06/14 we have been able to wean her down to 70%. Will shoot for 60% today. Updated her (3) Transaminitis Is this a current diagnosis for this admission?: Yes Plan: Likely secondary to viral infection. Will monitor. (4) Depression Qualifiers: Depression Type: unspecified Qualified Code(s): F32.9 - Major depressive disorder, single episode, unspecified Is this a current diagnosis for this admission?: Yes Plan: citalopram currently on hold due to interaction with azithromycin (5) Hypertension Qualifiers: Hypertension type: essential hypertension Qualified Code(s): I10 - Essential (primary) hypertension Is this a current diagnosis for this admission?: Yes (6) Hyponatremia Is this a current diagnosis for this admission?: Yes - Time Time Spent with patient: 15-24 minutes Anticipated Discharge Disposition: Home, Self Care Anticipated Discharge Timeframe: 1-2 weeks
[2020-07-04] MEDS: MELATONIN 5 MG TABLET PO SCH (21:49)
[2020-07-04] MEDS: CALCIUM CARBONATE 500 MG TAB.CHEW PO PRN (21:49)
[2020-07-05] MEDS: ALBUTEROL SULFATE HFA (90 MCG/PUFF) 8 GM MDI IH SCH ×8 (02:15→23:20)
[2020-07-05] MEDS: MORPHINE SULFATE 10 MG/ML INJ IV PRN ×5 (04:45→23:10)
[2020-07-05] MEDS: METHYLPREDNISOLONE INJ 40 MG/1 ML SDV IV SCH ×3 (05:13→23:09)
[2020-07-05] MEDS: PANTOPRAZOLE SODIUM 40 MG TABLET.DR PO SCH (05:13)
[2020-07-05 05:30] LABS: C-REACTIVE PROTEIN 29.6 mg/L (<10.0)
[2020-07-05 05:56] LABS: FERRITIN 51.7 ng/mL (6.2-137.0)
[2020-07-05] MEDS: AZITHROMYCIN 250 MG TABLET PO SCH (09:30)
[2020-07-05] MEDS: LISINOPRIL 10 MG TABLET PO SCH (09:30)
[2020-07-05] MEDS: HYDROCHLOROTHIAZIDE 25 MG TABLET PO SCH (09:30)
[2020-07-05] MEDS: ZINC SULFATE 220 MG CAPSULE PO SCH (09:30)
[2020-07-05] MEDS: NORMAL SALINE 1000 ML 1,000 ML IV PRN ×2 (09:30→17:20)
[2020-07-05] MEDS: CHOLECALCIFEROL (D3) 1,000 UNIT (25 MCG) TABLET PO SCH (09:30)
[2020-07-05] MEDS: ASCORBIC ACID 500 MG TABLET PO SCH ×2 (09:30→17:13)
[2020-07-05] MEDS: ENOXAPARIN SODIUM INJ 100 MG/1 ML DISP.SYRIN SUBCUT SCH ×2 (09:31→23:07)
[2020-07-05] MEDS: REMDESIVIR 100 MG in NORMAL SALINE 250 ML IV SCH (11:12)
--- NOTE | 2020-07-05 15:52 | PDOC PROGRESS REPORT ---
Subjective Date:: 07/05/20 Subjective:: She feels well today. She is not having any difficulty breathing. Comfortable on BiPAP. Able to wean down FiO2 this point. Reason For Visit: COVID PNEUMONIA,HYPERTENSION,DEPRESSION,DIARRHEA Physical Exam Vital Signs: Temp Pulse Resp BP Pulse Ox 98.4 F 83 20 142/85 H 100 07/05/20 11:33 07/05/20 14:00 07/05/20 11:33 07/05/20 11:33 07/05/20 12:36 Intake & Output 07/04/20 07/05/20 07/06/20 06:59 06:59 06:59 Intake Total 3408 2427 1410 Output Total 1850 600 Balance 3408 577 810 Weight 108.5 kg 109.5 kg General appearance: PRESENT: no acute distress, cooperative Neck exam: ABSENT: JVD Respiratory exam: PRESENT: clear to auscultation kevin, symmetrical, unlabored. ABSENT: tachypnea, wheezes Cardiovascular exam: PRESENT: RRR, +S1, +S2. ABSENT: tachycardia GI/Abdominal exam: PRESENT: soft. ABSENT: rebound, rigid, tenderness Neurological exam: PRESENT: alert, awake, oriented to person, oriented to place, oriented to time Results Laboratory Results: 07/04/20 04:11 07/03/20 04:14 07/05/20 04:05 Ferritin 51.70 C-Reactive Protein 29.6 H 07/01/20 10:40 NT-Pro-B Natriuret Pep 158 H Impressions: Chest X-Ray 07/01/20 10:12 IMPRESSION: Limited examination. Favor hazy opacification of the right hemithorax to be on the basis of artifact ; acute pulmonary process is not excluded. Recommend dedicated PA/Lat chest imaging when feasible. Chest/Abdomen CTA 07/01/20 12:02 IMPRESSION: 1. Diffuse ground-glass attenuation throughout both lungs, consistent with multifocal pneumonia. Several areas demonstrate discrete solid nodularity. A f ollow-up CT of the chest in 3 months is recommended to confirm complete resolution. Commonly reported imaging features of COVID-19 pneumonia are present. Other processes such as influenza pneumonia and organizing pneumonia, as can be seen with drug toxicity and connective tissue disease, can cause a similar imaging pattern. PneTyp 2. Severe hepatic steatosis. 3. Small hiatal hernia. 4. No pulmonary embolism. Assessment and Plan - Diagnosis (1) Pneumonia due to COVID-19 virus Is this a current diagnosis for this admission?: Yes Plan: Remdesivir day 4. Status post ivermectin Continue Solu-Medrol Continue multivitamins and zinc supplements Currently on azithromycin day 4 Ensure with each tray (2) Acute respiratory failure with hypoxia Is this a current diagnosis for this admission?: Yes Plan: Hypoxia improved. Still quite hypoxic though. BiPAP FiO2 reduced to 50% this morning. (3) Transaminitis Is this a current diagnosis for this admission?: Yes Plan: Likely secondary to viral infection. Will monitor. (4) Depression Qualifiers: Depression Type: unspecified Qualified Code(s): F32.9 - Major depressive disorder, single episode, unspecified Is this a current diagnosis for this admission?: Yes (5) Hypertension Qualifiers: Hypertension type: essential hypertension Qualified Code(s): I10 - Essential (primary) hypertension Is this a current diagnosis for this admission?: Yes (6) Hyponatremia Is this a current diagnosis for this admission?: Yes - Time Time Spent with patient: Less than 15 minutes Anticipated Discharge Disposition: Home, Self Care Anticipated Discharge Timeframe: 1 week
[2020-07-05] MEDS: CALCIUM CARBONATE 500 MG TAB.CHEW PO PRN (18:30)
[2020-07-05] MEDS: MELATONIN 5 MG TABLET PO SCH (23:07)
[2020-07-06] MEDS: ALBUTEROL SULFATE HFA (90 MCG/PUFF) 8 GM MDI IH SCH ×6 (04:16→22:13)
[2020-07-06] MEDS: MORPHINE SULFATE 10 MG/ML INJ IV PRN ×5 (04:26→22:52)
[2020-07-06 04:44] LABS: HEMATOCRIT 35.8 % (36.0-47.0); HEMOGLOBIN 12.6 g/dL (12.0-15.5); MEAN CORPUSCULAR HGB CONC 35.1 g/dL (32.0-36.0); MEAN CORPUSCULAR VOLUME 97 fl (80-97); PLATELET COUNT 549 10^3/uL (150-450); RED BLOOD COUNT 3.69 10^6/uL (3.72-5.28); RED CELL DISTRIBUTION WIDTH 15.2 % (11.5-14.0); WHITE BLOOD COUNT 16.8 10^3/uL (4.0-10.5)
[2020-07-06 07:19] LABS: APPEARANCE,URINE CLEAR; BILIRUBIN,URINE NEGATIVE (NEGATIVE); COLOR,URINE STRAW; GLUCOSE, URINE NEGATIVE (NEGATIVE); KETONES,URINE NEGATIVE (NEGATIVE); LEUKOCYTE ESTERASE,URINE NEGATIVE (NEGATIVE); NITRITE,URINE NEGATIVE (NEGATIVE); PROTEIN,URINE NEGATIVE (NEGATIVE); URINE SPECIFIC GRAVITY 1.005; UROBILINOGEN,URINE NEGATIVE mg/dL (<2.0)
[2020-07-06] MEDS: PANTOPRAZOLE SODIUM 40 MG TABLET.DR PO SCH (07:31)
[2020-07-06] MEDS: LISINOPRIL 10 MG TABLET PO SCH (09:34)
[2020-07-06] MEDS: CHOLECALCIFEROL (D3) 1,000 UNIT (25 MCG) TABLET PO SCH (09:35)
[2020-07-06] MEDS: ZINC SULFATE 220 MG CAPSULE PO SCH (09:35)
[2020-07-06] MEDS: ASCORBIC ACID 500 MG TABLET PO SCH ×2 (09:35→17:06)
[2020-07-06] MEDS: HYDROCHLOROTHIAZIDE 25 MG TABLET PO SCH (09:35)
[2020-07-06] MEDS: AZITHROMYCIN 250 MG TABLET PO SCH (09:35)
[2020-07-06] MEDS: METHYLPREDNISOLONE INJ 40 MG/1 ML SDV IV SCH ×2 (10:21→22:13)
[2020-07-06] MEDS: REMDESIVIR 100 MG in NORMAL SALINE 250 ML IV SCH (11:10)
[2020-07-06] MEDS: ENOXAPARIN SODIUM INJ 100 MG/1 ML DISP.SYRIN SUBCUT SCH ×2 (11:11→22:12)
--- NOTE | 2020-07-06 15:01 | PDOC PROGRESS REPORT ---
Subjective Date:: 07/06/20 Subjective:: Feels better today. Has some chest pain upon coughing only. Reason For Visit: COVID PNEUMONIA,HYPERTENSION,DEPRESSION,DIARRHEA Physical Exam Vital Signs: Temp Pulse Resp BP Pulse Ox 98.5 F 101 H 19 127/63 H 95 07/06/20 08:42 07/06/20 08:42 07/06/20 03:38 07/06/20 08:42 07/06/20 12:35 Intake & Output 07/05/20 07/06/20 07/07/20 06:59 06:59 06:59 Intake Total 2427 2882 Output Total 1850 2250 Balance 577 632 Weight 109.5 kg 109.5 kg General appearance: PRESENT: no acute distress, cooperative Neck exam: ABSENT: JVD Respiratory exam: PRESENT: chest wall tenderness, clear to auscultation kevin, symmetrical, unlabored. ABSENT: tachypnea, wheezes Cardiovascular exam: PRESENT: RRR, +S1, +S2. ABSENT: tachycardia GI/Abdominal exam: PRESENT: soft. ABSENT: rebound, rigid, tenderness Neurological exam: PRESENT: alert, awake, oriented to person, oriented to place, oriented to time, oriented to situation Psychiatric exam: ABSENT: agitated, anxious Results Laboratory Results: 07/06/20 04:09 07/03/20 04:14 07/06/20 07/06/20 04:09 05:50 WBC 16.8 H RBC 3.69 L Hgb 12.6 Hct 35.8 L MCV 97 MCH 34.0 H MCHC 35.1 RDW 15.2 H Plt Count 549 H Urine Color STRAW Urine Appearance CLEAR Urine pH 8.0 Ur Specific [place] 1.005 Urine Protein NEGATIVE Urine Glucose (UA) NEGATIVE Urine Ketones NEGATIVE Urine Blood SMALL H Urine Nitrite NEGATIVE Ur Leukocyte Esterase NEGATIVE Urine WBC (Auto) 0 07/01/20 12:15 Blood Blood Culture - Final NO GROWTH IN 5 DAYS 07/01/20 10:40 Blood Blood Culture - Final NO GROWTH IN 5 DAYS 07/01/20 10:40 NT-Pro-B Natriuret Pep 158 H Impressions: Chest X-Ray 07/01/20 10:12 IMPRESSION: Limited examination. Favor hazy opacification of the right hemithorax to be on the basis of artifact ; acute pulmonary process is not excluded. Recommend dedicated PA/Lat chest imaging when feasible. Chest/Abdomen CTA 07/01/20 12:02 IMPRESSION: 1. Diffuse ground-glass attenuation throughout both lungs, consistent with multifocal pneumonia. Several areas demonstrate discrete solid nodularity. A follow-up CT of the chest in 3 months is recommended to confirm complete resolution. Commonly reported imaging features of COVID-19 pneumonia are present. Other processes such as influenza pneumonia and organizing pneumonia, as can be seen with drug toxicity and connective tissue disease, can cause a similar imaging pattern. PneTyp 2. Severe hepatic steatosis. 3. Small hiatal hernia. 4. No pulmonary embolism. Assessment and Plan - Diagnosis (1) Pneumonia due to COVID-19 virus Is this a current diagnosis for this admission?: Yes Plan: Status post remdesivir, ivermectin and azithromycin Continue Solu-Medrol Continue multivitamins and zinc supplements (2) Acute respiratory failure with hypoxia Is this a current diagnosis for this admission?: Yes Plan: Hypoxia improved. Weaned down to Oxymizer at 15 L today. (3) Transaminitis Is this a current diagnosis for this admission?: Yes Plan: Likely secondary to viral infection. Will monitor. CMP in the morning (4) Hypertension Qualifiers: Hypertension type: essential hypertension Qualified Code(s): I10 - Essential (primary) hypertension Is this a current diagnosis for this admission?: Yes Plan: Continue lisinopril (5) Depression Qualifiers: Depression Type: unspecified Qualified Code(s): F32.9 - Major depressive disorder, single episode, unspecified Is this a current diagnosis for this admission?: Yes (6) Hyponatremia Is this a current diagnosis for this admission?: Yes - Time Time Spent with patient: Less than 15 minutes Anticipated Discharge Disposition: Home, Self Care Anticipated Discharge Timeframe: 1 week
[2020-07-06] MEDS: MELATONIN 5 MG TABLET PO SCH (22:12)
[2020-07-07] MEDS: ALBUTEROL SULFATE HFA (90 MCG/PUFF) 8 GM MDI IH SCH ×6 (03:36→21:55)
[2020-07-07] MEDS: PANTOPRAZOLE SODIUM 40 MG TABLET.DR PO SCH (05:43)
[2020-07-07] MEDS: MORPHINE SULFATE 10 MG/ML INJ IV PRN ×3 (05:53→22:00)
[2020-07-07 07:07] LABS: ALBUMIN 3.2 g/dL (3.5-5.0); ALKALINE PHOSPHATASE 106 U/L (38-126); ANION GAP 10 (5-19); ASPARTATE AMINO TRANSFERASE 36 U/L (14-36); BILIRUBIN,DIRECT 0.2 mg/dL (0.0-0.4); BILIRUBIN,TOTAL 0.5 mg/dL (0.2-1.3); BLOOD UREA NITROGEN 10 mg/dL (7-20); CALCIUM 9.2 mg/dL (8.4-10.2); CARBON DIOXIDE 22 mmol/L (22-30); CHLORIDE 101 mmol/L (98-107); GLUCOSE 130 mg/dL (75-110); POTASSIUM 3.6 mmol/L (3.6-5.0); TOTAL PROTEIN 6.5 g/dL (6.3-8.2)
[2020-07-07] MEDS: ASCORBIC ACID 500 MG TABLET PO SCH ×2 (09:55→17:04)
[2020-07-07] MEDS: ENOXAPARIN SODIUM INJ 100 MG/1 ML DISP.SYRIN SUBCUT SCH ×2 (09:55→21:55)
[2020-07-07] MEDS: ZINC SULFATE 220 MG CAPSULE PO SCH (09:55)
[2020-07-07] MEDS: CHOLECALCIFEROL (D3) 1,000 UNIT (25 MCG) TABLET PO SCH (09:55)
[2020-07-07] MEDS: LISINOPRIL 10 MG TABLET PO SCH (09:55)
[2020-07-07] MEDS: METHYLPREDNISOLONE INJ 40 MG/1 ML SDV IV SCH ×2 (09:56→21:55)
[2020-07-07] MEDS: HYDROCHLOROTHIAZIDE 25 MG TABLET PO SCH (09:56)
[2020-07-07] MEDS: GUAIFENESIN SYRP 200 MG/10 ML UDC PO PRN ×3 (10:44→19:50)
[2020-07-07] MEDS: ACETAMINOPHEN 325 MG TABLET PO PRN ×3 (10:44→19:50)
--- NOTE | 2020-07-07 17:28 | PDOC PROGRESS REPORT ---
Subjective Date:: 07/07/20 Subjective:: Feels better today. Reason For Visit: COVID PNEUMONIA,HYPERTENSION,DEPRESSION,DIARRHEA Physical Exam Vital Signs: Temp Pulse Resp BP Pulse Ox 98.5 F 117 H 16 150/92 H 97 07/07/20 12:22 07/07/20 14:00 07/07/20 12:22 07/07/20 12:22 07/07/20 16:00 Intake & Output 07/06/20 07/07/20 07/08/20 06:59 06:59 06:59 Intake Total 2882 2971 Output Total 2250 1500 Balance 632 1471 Weight 109.5 kg 107.2 kg General appearance: PRESENT: no acute distress, cooperative Neck exam: ABSENT: JVD Respiratory exam: PRESENT: unlabored. ABSENT: tachypnea Cardiovascular exam: ABSENT: tachycardia Neurological exam: PRESENT: alert, awake, oriented to person, oriented to place, oriented to time Results Laboratory Results: 07/06/20 04:09 07/07/20 05:26 07/07/20 05:26 Sodium 133.1 L Potassium 3.6 Chloride 101 Carbon Dioxide 22 Anion Gap 10 BUN 10 Creatinine 0.60 Est GFR ( Amer) > 60 Glucose 130 H Calcium 9.2 Total Bilirubin 0.5 AST 36 Alkaline Phosphatase 106 Total Protein 6.5 Albumin 3.2 L 07/01/20 10:40 NT-Pro-B Natriuret Pep 158 H Impressions: Chest X-Ray 07/01/20 10:12 IMPRESSION: Limited examination. Favor hazy opacification of the right hemithorax to be on the basis of artifact ; acute pulmonary process is not excluded. Recommend dedicated PA/Lat chest imaging when feasible. Chest/Abdomen CTA 07/01/20 12:02 IMPRESSION: 1. Diffuse ground-glass attenuation throughout both lungs, consistent with multifocal pneumonia. Several areas demonstrate discrete solid nodularity. A follow-up CT of the chest in 3 months is recommended to confirm complete resolution. Commonly reported imaging features of COVID-19 pneumonia are p resent. Other processes such as influenza pneumonia and organizing pneumonia, as can be seen with drug toxicity and connective tissue disease, can cause a similar imaging pattern. PneTyp 2. Severe hepatic steatosis. 3. Small hiatal hernia. 4. No pulmonary embolism. Assessment and Plan - Diagnosis (1) Pneumonia due to COVID-19 virus Is this a current diagnosis for this admission?: Yes (2) Acute respiratory failure with hypoxia Is this a current diagnosis for this admission?: Yes (3) Transaminitis Is this a current diagnosis for this admission?: Yes (4) Hypertension Qualifiers: Hypertension type: essential hypertension Qualified Code(s): I10 - Essential (primary) hypertension Is this a current diagnosis for this admission?: Yes (5) Depression Qualifiers: Depression Type: unspecified Qualified Code(s): F32.9 - Major depressive disorder, single episode, unspecified Is this a current diagnosis for this admission?: Yes (6) Hyponatremia Is this a current diagnosis for this admission?: Yes - Plan Summary Summary: Patient continues to do better. She is awake and eating breakfast to self drain the time of encounter. She feels comfortable today. Respiratory status remains stable. Showing some improvement has been able to downgrade her to the Oxymizer today. We will keep her off the BiPAP. If the Oxymizer at 15 L is not sufficient, then we will transition her to high flow nasal cannula. - Time Time Spent with patient: Less than 15 minutes Anticipated Discharge Disposition: Home, Self Care Anticipated Discharge Timeframe: 5days
[2020-07-07] MEDS: MELATONIN 5 MG TABLET PO SCH (21:55)
[2020-07-08] MEDS: GUAIFENESIN SYRP 200 MG/10 ML UDC PO PRN ×3 (00:01→08:48)
[2020-07-08] MEDS: ALBUTEROL SULFATE HFA (90 MCG/PUFF) 8 GM MDI IH SCH ×6 (02:45→22:13)
[2020-07-08] MEDS: MORPHINE SULFATE 10 MG/ML INJ IV PRN (04:00)
[2020-07-08] MEDS: PANTOPRAZOLE SODIUM 40 MG TABLET.DR PO SCH (07:17)
[2020-07-08] MEDS: ACETAMINOPHEN 325 MG TABLET PO PRN ×3 (08:48→20:25)
[2020-07-08] MEDS: ENOXAPARIN SODIUM INJ 100 MG/1 ML DISP.SYRIN SUBCUT SCH (09:30)
[2020-07-08] MEDS: LISINOPRIL 10 MG TABLET PO SCH (09:31)
[2020-07-08] MEDS: ZINC SULFATE 220 MG CAPSULE PO SCH (09:31)
[2020-07-08] MEDS: HYDROCHLOROTHIAZIDE 25 MG TABLET PO SCH (09:31)
[2020-07-08] MEDS: ASCORBIC ACID 500 MG TABLET PO SCH ×2 (09:31→18:02)
[2020-07-08] MEDS: CHOLECALCIFEROL (D3) 1,000 UNIT (25 MCG) TABLET PO SCH (09:31)
[2020-07-08] MEDS: METHYLPREDNISOLONE INJ 40 MG/1 ML SDV IV SCH ×2 (09:32→22:12)
[2020-07-08] MEDS ORDERED: MELOXICAM 7.5 MG TABLET PO ONE (12:01)
[2020-07-08] MEDS ORDERED: MORPHINE SULFATE 10 MG/ML INJ IV PRN (12:02)
--- NOTE | 2020-07-08 12:08 | PDOC PROGRESS REPORT ---
Subjective Date:: 07/08/20 Subjective:: Patient still complaining of some pain in her chest and back whenever she coughs . Also states that she felt uncomfortable through the night making it difficult for her to sleep. She was able to sleep around 5 AM this morning. During that time of encounter around 11 AM she was fully awake. She denies any shortness of breath. She is on Oxymizer at 15 L. She is requesting Mobic to help with her pain. Also requesting medication to help her sleep at night. Melatonin not he lping her. Reason For Visit: COVID PNEUMONIA,HYPERTENSION,DEPRESSION,DIARRHEA Physical Exam Vital Signs: Temp Pulse Resp BP Pulse Ox 98.3 F 104 H 19 116/56 L 91 L 07/08/20 08:33 07/08/20 08:33 07/08/20 03:26 07/08/20 08:33 07/08/20 09:20 Intake & Output 07/07/20 07/08/20 07/09/20 06:59 06:59 06:59 Intake Total 2971 1214 Output Total 1500 3375 Balance 1471 -2161 Weight 107.2 kg 107.1 kg General appearance: PRESENT: no acute distress, cooperative Neck exam: ABSENT: JVD Respiratory exam: PRESENT: chest wall tenderness, symmetrical, unlabored. ABSENT: accessory muscle use, tachypnea, wheezes Cardiovascular exam: PRESENT: RRR, +S1, +S2. ABSENT: tachycardia GI/Abdominal exam: PRESENT: soft. ABSENT: rebound, rigid, tenderness Neurological exam: PRESENT: alert, awake, oriented to person, oriented to place, oriented to time, oriented to situation Results Laboratory Results: 07/06/20 04:09 07/07/20 05:26 07/01/20 10:40 NT-Pro-B Natriuret Pep 158 H Impressions: Chest X-Ray 07/01/20 10:12 IMPRESSION: Limited examination. Favor hazy opacification of the right hemithorax to be on the basis of artifact ; acute pulmonary process is not excluded. Recommend dedicated PA/Lat chest imaging when feasible. Chest/Abdomen CTA 07/01/20 12:02 IMPRESSION: 1. Diffuse ground-glass attenuation throughout both lungs, consistent with multifocal pneumonia. Several areas demonstrate discrete solid nodularity. A follow-up CT of the chest in 3 months is recommended to confirm complete resolution. Commonly reported imaging features of COVID-19 pneumonia are present. Other processes such as influenza pneumonia and organizing pneumonia, as can be seen with drug toxicity and connective tissue disease, can cause a similar imaging pattern. PneTyp 2. Severe hepatic steatosis. 3. Small hiatal hernia. 4. No pulmonary embolism. Assessment and Plan - Diagnosis (1) Pneumonia due to COVID-19 virus Is this a current diagnosis for this admission?: Yes Plan: Status post remdesivir, ivermectin and azithromycin Continue Solu-Medrol Continue multivitamins and zinc supplements Continue therapeutic Lovenox. Check inflammatory markers D-dimer CMP and CBC (2) Acute respiratory failure with hypoxia Is this a current diagnosis for this admission?: Yes Plan: She remains on Oxymizer at 15 L. Her saturations seems to be in the low 90s earlier today but during encounter she was in the mid to high 90s. She is up in the chair. We will try reducing her Oxymizer to 12 L and see if she tolerates it. (3) Transaminitis Is this a current diagnosis for this admission?: Yes Plan: Secondary to COVID-19 infection. Improved (4) Hypertension Qualifiers: Hypertension type: essential hypertension Qualified Code(s): I10 - Essential (primary) hypertension Is this a current diagnosis for this admission?: Yes (5) Depression Qualifiers: Depression Type: unspecified Qualified Code(s): F32.9 - Major depressive disorder, single episode, unspecified Is this a current diagnosis for this admission?: Yes (6) Hyponatremia Is this a current diagnosis for this admission?: Yes - Time Time Spent with patient: Less than 15 minutes Anticipated Discharge Disposition: Home, Self Care Anticipated Discharge Timeframe: within 72 hours
[2020-07-08] MEDS: GUAIFENESIN/CODEINE PHOS 100-10 MG/ 5 ML UDC PO PRN ×2 (13:02→20:17)
[2020-07-08] MEDS ORDERED: MELOXICAM 7.5 MG TABLET PO SCH (18:00)
[2020-07-08] MEDS: IBUPROFEN 400 MG TABLET PO PRN (18:27)
[2020-07-08] MEDS ORDERED: NORMAL SALINE 1000 ML 1,000 ML IV ONE (21:41)
[2020-07-08] MEDS: MELATONIN 5 MG TABLET PO SCH (22:12)
[2020-07-08] MEDS: TEMAZEPAM 7.5 MG CAPSULE PO PRN (22:20)
[2020-07-09] MEDS: GUAIFENESIN/CODEINE PHOS 100-10 MG/ 5 ML UDC PO PRN ×4 (01:58→20:01)
[2020-07-09] MEDS: ACETAMINOPHEN 325 MG TABLET PO PRN ×4 (01:59→20:01)
[2020-07-09] MEDS: ALBUTEROL SULFATE HFA (90 MCG/PUFF) 8 GM MDI IH SCH ×6 (02:27→21:41)
[2020-07-09] MEDS: IBUPROFEN 400 MG TABLET PO PRN ×3 (03:59→23:20)
[2020-07-09 04:52] LABS: HEMATOCRIT 36.1 % (36.0-47.0); HEMOGLOBIN 12.2 g/dL (12.0-15.5); MEAN CORPUSCULAR HEMOGLOBIN 32.9 pg (27.0-33.4); MEAN CORPUSCULAR HGB CONC 33.8 g/dL (32.0-36.0); MEAN CORPUSCULAR VOLUME 98 fl (80-97); PLATELET COUNT 613 10^3/uL (150-450); RED CELL DISTRIBUTION WIDTH 15.7 % (11.5-14.0); WHITE BLOOD COUNT 16.9 10^3/uL (4.0-10.5)
[2020-07-09 05:20] LABS: ALBUMIN 3.1 g/dL (3.5-5.0); ALKALINE PHOSPHATASE 86 U/L (38-126); ANION GAP 11 (5-19); ASPARTATE AMINO TRANSFERASE 34 U/L (14-36); BILIRUBIN,DIRECT 0.3 mg/dL (0.0-0.4); BILIRUBIN,TOTAL 0.4 mg/dL (0.2-1.3); BLOOD UREA NITROGEN 20 mg/dL (7-20); C-REACTIVE PROTEIN 53.2 mg/L (<10.0); CALCIUM 9.4 mg/dL (8.4-10.2); CARBON DIOXIDE 22 mmol/L (22-30); CHLORIDE 106 mmol/L (98-107); GLUCOSE 148 mg/dL (75-110); POTASSIUM 3.9 mmol/L (3.6-5.0); TOTAL PROTEIN 6.3 g/dL (6.3-8.2)
[2020-07-09] MEDS: PANTOPRAZOLE SODIUM 40 MG TABLET.DR PO SCH (06:02)
[2020-07-09 06:34] LABS: APPEARANCE,URINE CLEAR; BILIRUBIN,URINE NEGATIVE (NEGATIVE); COLOR,URINE STRAW; GLUCOSE, URINE NEGATIVE (NEGATIVE); KETONES,URINE NEGATIVE (NEGATIVE); LEUKOCYTE ESTERASE,URINE NEGATIVE (NEGATIVE); NITRITE,URINE NEGATIVE (NEGATIVE); PROTEIN,URINE NEGATIVE (NEGATIVE); URINE SPECIFIC GRAVITY 1.008; UROBILINOGEN,URINE NEGATIVE mg/dL (<2.0)
[2020-07-09] MEDS ORDERED: ENOXAPARIN SODIUM INJ 40 MG/0.4 ML DISP.SYRIN SUBCUT SCH (10:00)
[2020-07-09] MEDS: HYDROCHLOROTHIAZIDE 25 MG TABLET PO SCH (10:21)
[2020-07-09] MEDS: ZINC SULFATE 220 MG CAPSULE PO SCH (10:22)
[2020-07-09] MEDS: METHYLPREDNISOLONE INJ 40 MG/1 ML SDV IV SCH ×2 (10:22→21:41)
[2020-07-09] MEDS: ASCORBIC ACID 500 MG TABLET PO SCH ×2 (10:22→17:48)
[2020-07-09] MEDS: CHOLECALCIFEROL (D3) 1,000 UNIT (25 MCG) TABLET PO SCH (10:22)
[2020-07-09] MEDS: LISINOPRIL 10 MG TABLET PO SCH (10:22)
--- NOTE | 2020-07-09 13:47 | PDOC PROGRESS REPORT ---
Subjective Date:: 07/09/20 Reason For Visit: COVID PNEUMONIA,HYPERTENSION,DEPRESSION,DIARRHEA Physical Exam Vital Signs: Temp Pulse Resp BP Pulse Ox 98.1 F 91 22 H 117/69 91 L 07/09/20 08:05 07/09/20 08:05 07/09/20 08:05 07/09/20 08:05 07/09/20 08:05 Intake & Output 07/08/20 07/09/20 07/10/20 06:59 06:59 06:59 Intake Total 1214 2897 Output Total 3375 3025 Balance -2161 -128 Weight 107.1 kg 106.5 kg General appearance: PRESENT: no acute distress Respiratory exam: PRESENT: symmetrical. ABSENT: accessory muscle use, tachypnea Cardiovascular exam: PRESENT: RRR. ABSENT: bradycardia, irregular rhythm, tachycardia Neurological exam: PRESENT: alert, awake Psychiatric exam: ABSENT: agitated, anxious Results Laboratory Results: 07/09/20 03:51 07/09/20 03:51 07/09/20 07/09/20 07/09/20 03:51 03:51 06:05 WBC 16.9 H RBC 3.70 L Hgb 12.2 Hct 36.1 MCV 98 H MCH 32.9 MCHC 33.8 RDW 15.7 H Plt Count 613 H Sodium 138.7 Potassium 3.9 Chloride 106 Carbon Dioxide 22 Anion Gap 11 BUN 20 Creatinine 0.72 Est GFR ( Amer) > 60 Glucose 148 H Calcium 9.4 Ferritin 50.30 Total Bilirubin 0.4 AST 34 Alkaline Phosphatase 86 C-Reactive Protein 53.2 H Total Protein 6.3 Albumin 3.1 L Urine Color STRAW Urine Appearance CLEAR Urine pH 7.0 Ur Specific [place] 1.008 Urine Protein NEGATIVE Urine Glucose (UA) NEGATIVE Urine Ketones NEGATIVE Urine Blood NEGATIVE Urine Nitrite NEGATIVE Ur Leukocyte Esterase NEGATIVE Urine WBC (Auto) 0 Urine RBC (Auto) 0 07/01/20 10:40 NT-Pro-B Natriuret Pep 158 H Impressions: Chest X-Ray 07/01/20 10:12 IMPRESSION: Limited examination. Favor hazy opacification of the right hemithorax to be on the basis of artifact ; acute pulmonary process is not excluded. Recommend dedicated PA/Lat chest imaging when feasible. Chest/Abdomen CTA 07/01/20 12:02 IMPRESSION: 1. Diffuse ground-glass attenuation throughout both lungs, consistent with multifocal pneumonia. Several areas demonstrate discrete solid nodularity. A follow-up CT of the chest in 3 months is recommended to confirm complete resolution. Commonly reported imaging features of COVID-19 pneumonia are present. Other processes such as influenza pneumonia and organizing pneumonia, as can be seen with drug toxicity and connective tissue disease, can cause a similar imaging pattern. PneTyp 2. Severe hepatic steatosis. 3. Small hiatal hernia. 4. No pulmonary embolism. Assessment and Plan - Diagnosis (1) Pneumonia due to COVID-19 virus Is this a current diagnosis for this admission?: Yes Plan: Status post remdesivir, ivermectin and azithromycin Continue Solu-Medrol Continue multivitamins and zinc supplements Continue therapeutic Lovenox. (2) Acute respiratory failure with hypoxia Is this a current diagnosis for this admission?: Yes Plan: She remains on Oxymizer at 13 L. We will try to bump her Oxymizer down to 10 L. Goal SPO2 of 90% and above (3) Transaminitis Is this a current diagnosis for this admission?: Yes (4) Hypertension Qualifiers: Hypertension type: essential hypertension Qualified Code(s): I10 - Essential (primary) hypertension Is this a current diagnosis for this admission?: Yes (5) Depression Qualifiers: Depression Type: unspecified Qualified Code(s): F32.9 - Major depressive disorder, single episode, unspecified Is this a current diagnosis for this admission?: Yes (6) Hyponatremia Is this a current diagnosis for this admission?: Yes - Time Time Spent with patient: Less than 15 minutes Anticipated Discharge Disposition: Home, Self Care Anticipated Discharge Timeframe: within 72 hours
[2020-07-09] MEDS: MELATONIN 5 MG TABLET PO SCH (21:40)
[2020-07-10] MEDS: ALBUTEROL SULFATE HFA (90 MCG/PUFF) 8 GM MDI IH SCH ×5 (02:19→17:36)
[2020-07-10] MEDS: ACETAMINOPHEN 325 MG TABLET PO PRN (02:19)
[2020-07-10] MEDS: GUAIFENESIN/CODEINE PHOS 100-10 MG/ 5 ML UDC PO PRN ×3 (02:20→17:34)
[2020-07-10] MEDS: PANTOPRAZOLE SODIUM 40 MG TABLET.DR PO SCH (05:21)
[2020-07-10] MEDS: CHOLECALCIFEROL (D3) 1,000 UNIT (25 MCG) TABLET PO SCH (11:00)
[2020-07-10] MEDS: LISINOPRIL 10 MG TABLET PO SCH (11:01)
[2020-07-10] MEDS: HYDROCHLOROTHIAZIDE 25 MG TABLET PO SCH (11:01)
[2020-07-10] MEDS: ASCORBIC ACID 500 MG TABLET PO SCH ×2 (11:01→17:34)
[2020-07-10] MEDS: IBUPROFEN 400 MG TABLET PO PRN (11:01)
[2020-07-10] MEDS: ZINC SULFATE 220 MG CAPSULE PO SCH (11:02)
--- NOTE | 2020-07-10 13:30 | PDOC PROGRESS REPORT ---
Subjective Date:: 07/10/20 Reason For Visit: COVID PNEUMONIA,HYPERTENSION,DEPRESSION,DIARRHEA Physical Exam Vital Signs: Temp Pulse Resp BP Pulse Ox 97.6 F 75 20 125/65 93 07/10/20 03:29 07/10/20 07:00 07/10/20 03:29 07/10/20 03:29 07/10/20 08:59 Intake & Output 07/09/20 07/10/20 07/11/20 06:59 06:59 06:59 Intake Total 2897 1543 Output Total 3022 2200 Balance -128 -657 Weight 106.5 kg 105.9 kg General appearance: PRESENT: no acute distress Respiratory exam: PRESENT: unlabored. ABSENT: accessory muscle use, tachypnea Cardiovascular exam: PRESENT: RRR. ABSENT: bradycardia, irregular rhythm, tachycardia Neurological exam: PRESENT: alert, awake, oriented to person, oriented to place, oriented to time, oriented to situation Psychiatric exam: ABSENT: anxious Results Laboratory Results: 07/09/20 03:51 07/09/20 03:51 07/01/20 10:40 NT-Pro-B Natriuret Pep 158 H Impressions: Chest X-Ray 07/01/20 10:12 IMPRESSION: Limited examination. Favor hazy opacification of the right hemithorax to be on the basis of artifact ; acute pulmonary process is not excluded. Recommend dedicated PA/Lat chest imaging when feasible. Chest/Abdomen CTA 07/01/20 12:02 IMPRESSION: 1. Diffuse ground-glass attenuation throughout both lungs, consistent with multifocal pneumonia. Several areas demonstrate discrete solid nodularity. A follow-up CT of the chest in 3 months is recommended to confirm complete resolution. Commonly reported imaging features of COVID-19 pneumonia are prese nt. Other processes such as influenza pneumonia and organizing pneumonia, as can be seen with drug toxicity and connective tissue disease, can cause a similar imaging pattern. PneTyp 2. Severe hepatic steatosis. 3. Small hiatal hernia. 4. No pulmonary embolism. Assessment and Plan - Diagnosis (1) Pneumonia due to COVID-19 virus Is this a current diagnosis for this admission?: Yes (2) Acute respiratory failure with hypoxia Is this a current diagnosis for this admission?: Yes (3) Transaminitis Is this a current diagnosis for this admission?: Yes (4) Hypertension Qualifiers: Hypertension type: essential hypertension Qualified Code(s): I10 - Essential (primary) hypertension Is this a current diagnosis for this admission?: Yes (5) Depression Qualifiers: Depression Type: unspecified Qualified Code(s): F32.9 - Major depressive disorder, single episode, unspecified Is this a current diagnosis for this admission?: Yes (6) Hyponatremia Is this a current diagnosis for this admission?: Yes - Plan Summary Summary: Patient is doing well. She remains on 8 L of oxygen. Saturation currently in the low 90s to mid 90s. We will try to wean her down to 6 L today to see if tolerated. We will continue current steroid regimen. Continue to monitor inflammatory markers. Remains on high prophylaxis dose with Lovenox. - Time Anticipated Discharge Disposition: Home, Self Care Anticipated Discharge Timeframe: within 72 hours
[2020-07-10] MEDS: METHYLPREDNISOLONE INJ 40 MG/1 ML SDV IV SCH ×2 (17:34→21:11)
[2020-07-10] MEDS: MELATONIN 5 MG TABLET PO SCH (21:11)
[2020-07-10] MEDS: TEMAZEPAM 7.5 MG CAPSULE PO PRN (21:11)
[2020-07-11] MEDS: ALBUTEROL SULFATE HFA (90 MCG/PUFF) 8 GM MDI IH SCH ×7 (01:00→21:12)
[2020-07-11] MEDS: GUAIFENESIN/CODEINE PHOS 100-10 MG/ 5 ML UDC PO PRN ×3 (01:27→23:03)
[2020-07-11] MEDS: ACETAMINOPHEN 325 MG TABLET PO PRN (01:30)
[2020-07-11] MEDS: IBUPROFEN 400 MG TABLET PO PRN ×2 (06:02→15:03)
[2020-07-11] MEDS: PANTOPRAZOLE SODIUM 40 MG TABLET.DR PO SCH (06:04)
[2020-07-11 06:24] LABS: HEMATOCRIT 39.7 % (36.0-47.0); HEMOGLOBIN 13.4 g/dL (12.0-15.5); MEAN CORPUSCULAR HEMOGLOBIN 33.3 pg (27.0-33.4); MEAN CORPUSCULAR HGB CONC 33.7 g/dL (32.0-36.0); MEAN CORPUSCULAR VOLUME 99 fl (80-97); PLATELET COUNT 668 10^3/uL (150-450); RED BLOOD COUNT 4.02 10^6/uL (3.72-5.28); RED CELL DISTRIBUTION WIDTH 15.8 % (11.5-14.0); WHITE BLOOD COUNT 15.1 10^3/uL (4.0-10.5)
[2020-07-11 07:22] LABS: APPEARANCE,URINE CLEAR; BILIRUBIN,URINE NEGATIVE (NEGATIVE); COLOR,URINE YELLOW; GLUCOSE, URINE NEGATIVE (NEGATIVE); KETONES,URINE NEGATIVE (NEGATIVE); LEUKOCYTE ESTERASE,URINE NEGATIVE (NEGATIVE); NITRITE,URINE NEGATIVE (NEGATIVE); PROTEIN,URINE NEGATIVE (NEGATIVE); URINE SPECIFIC GRAVITY 1.015; UROBILINOGEN,URINE NEGATIVE mg/dL (<2.0)
--- NOTE | 2020-07-11 11:28 | PDOC PROGRESS REPORT ---
Subjective Date:: 07/11/20 Subjective:: Patient feels better today. She is still having intermittent hacking cough. Her breathing is better. She denies any problems. Reason For Visit: COVID PNEUMONIA,HYPERTENSION,DEPRESSION,DIARRHEA Physical Exam Vital Signs: Temp Pulse Resp BP Pulse Ox 98.9 F 84 20 110/65 90 L 07/11/20 04:10 07/11/20 07:00 07/11/20 04:10 07/11/20 04:10 07/11/20 08:08 Intake & Output 07/10/20 07/11/20 07/12/20 06:59 06:59 06:59 Intake Total 1543 1463 Output Total 2200 4460 Balance -957 -1920 Weight 105.9 kg 104.6 kg General appearance: PRESENT: no acute distress, cooperative Neck exam: ABSENT: JVD Respiratory exam: PRESENT: clear to auscultation kevin, unlabored. ABSENT: wheezes Cardiovascular exam: PRESENT: +S1, +S2. ABSENT: tachycardia GI/Abdominal exam: PRESENT: soft. ABSENT: tenderness Neurological exam: PRESENT: alert, awake, oriented to person, oriented to place, oriented to time Psychiatric exam: ABSENT: agitated, anxious Results Laboratory Results: 07/11/20 05:16 07/09/20 03:51 07/11/20 07/11/20 05:16 06:00 WBC 15.1 H RBC 4.02 Hgb 13.4 Hct 39.7 MCV 99 H MCH 33.3 MCHC 33.7 RDW 15.8 H Plt Count 668 H Urine Color YELLOW Urine Appearance CLEAR Urine pH 7.0 Ur Specific [place] 1.015 Urine Protein NEGATIVE Urine Glucose (UA) NEGATIVE Urine Ketones NEGATIVE Urine Blood NEGATIVE Urine Nitrite NEGATIVE Ur Leukocyte Esterase NEGATIVE Urine RBC (Auto) 0 07/01/20 10:40 NT-Pro-B Natriuret Pep 158 H Impressions: Chest X-Ray 07/01/20 10:12 IMPRESSION: Limited examination. Favor hazy opacification of the right hemithorax to be on the basis of artifact ; acute pulmonary process is not excluded. Recommend dedicated PA/Lat chest imaging when feasible. Chest/Abdomen CTA 07/01/20 12:02 IMPRESSION: 1. Diffuse ground-glass attenuation throughout both lungs, consistent with multifocal pneumonia. Several areas demonstrate discrete solid nodularity. A follow-up CT of the chest in 3 months is recommended to confirm complete resolution. Commonly reported imaging features of COVID-19 pneumonia are present. Other processes such as influenza pneumonia and organizing pneumonia, as can be seen with drug toxicity and connective tissue disease, can cause a similar imaging pattern. PneTyp 2. Severe hepatic steatosis. 3. Small hiatal hernia. 4. No pulmonary embolism. Assessment and Plan - Diagnosis (1) Pneumonia due to COVID-19 virus Is this a current diagnosis for this admission?: Yes Plan: Status post remdesivir, ivermectin and azithromycin Decrease Solu-Medrol to daily dosing today. Continue multivitamins and zinc supplements Continue DVT prophylaxis with Lovenox (2) Acute respiratory failure with hypoxia Is this a current diagnosis for this admission?: Yes Plan: We will wean the oxygen down from 5 L to 3 L nasal cannula this morning. We will monitor her oxygenation and see if we can wean her further tomorrow. Ultimately her oxygenation has shown remarkable improvement as she was requiring BiPAP 1 week ago. (3) Transaminitis Is this a current diagnosis for this admission?: Yes (4) Hypertension Qualifiers: Hypertension type: essential hypertension Qualified Code(s): I10 - Essential (primary) hypertension Is this a current diagnosis for this admission?: Yes (5) Depression Qualifiers: Depression Type: unspecified Qualified Code(s): F32.9 - Major depressive disorder, single episode, unspecified Is this a current diagnosis for this admission?: Yes (6) Hyponatremia Is this a current diagnosis for this admission?: Yes - Time Time Spent with patient: Less than 15 minutes Anticipated Discharge Disposition: Home, Self Care Anticipated Discharge Timeframe: within 48 hours
[2020-07-11] MEDS: ENOXAPARIN SODIUM INJ 40 MG/0.4 ML DISP.SYRIN SUBCUT SCH (13:04)
[2020-07-11] MEDS: ASCORBIC ACID 500 MG TABLET PO SCH ×2 (13:04→18:46)
[2020-07-11] MEDS: HYDROCHLOROTHIAZIDE 25 MG TABLET PO SCH (13:05)
[2020-07-11] MEDS: CHOLECALCIFEROL (D3) 1,000 UNIT (25 MCG) TABLET PO SCH (13:05)
[2020-07-11] MEDS: LISINOPRIL 10 MG TABLET PO SCH (13:06)
[2020-07-11] MEDS: ZINC SULFATE 220 MG CAPSULE PO SCH (13:14)
[2020-07-11] MEDS: METHYLPREDNISOLONE INJ 40 MG/1 ML SDV IV SCH (20:17)
[2020-07-11] MEDS: MELATONIN 5 MG TABLET PO SCH (21:11)
[2020-07-11] MEDS: TEMAZEPAM 7.5 MG CAPSULE PO PRN (22:54)
[2020-07-12] MEDS: ALBUTEROL SULFATE HFA (90 MCG/PUFF) 8 GM MDI IH SCH ×4 (01:00→13:39)
[2020-07-12] MEDS: ACETAMINOPHEN 325 MG TABLET PO PRN ×2 (01:02→05:24)
[2020-07-12] MEDS: IBUPROFEN 400 MG TABLET PO PRN ×2 (02:29→16:27)
[2020-07-12 04:59] VITALS: BP 98/58
[2020-07-12] MEDS: PANTOPRAZOLE SODIUM 40 MG TABLET.DR PO SCH (05:21)
[2020-07-12] MEDS ORDERED: KETOROLAC TROMETHAMINE INJ/PF 30 MG/1 ML SDV IV ONE (09:40)
[2020-07-12] MEDS: LISINOPRIL 10 MG TABLET PO SCH (10:00)
[2020-07-12] MEDS ORDERED: METHYLPREDNISOLONE INJ 40 MG/1 ML SDV IV SCH (10:00)
[2020-07-12] MEDS: CHOLECALCIFEROL (D3) 1,000 UNIT (25 MCG) TABLET PO SCH (11:03)
[2020-07-12] MEDS: ENOXAPARIN SODIUM INJ 40 MG/0.4 ML DISP.SYRIN SUBCUT SCH (11:03)
[2020-07-12] MEDS: ASCORBIC ACID 500 MG TABLET PO SCH (11:04)
[2020-07-12] MEDS: HYDROCHLOROTHIAZIDE 25 MG TABLET PO SCH (11:04)
[2020-07-12] MEDS: GUAIFENESIN/CODEINE PHOS 100-10 MG/ 5 ML UDC PO PRN (13:35)
[2020-07-12] MEDS: ZINC SULFATE 220 MG CAPSULE PO SCH (15:08)
--- NOTE | 2020-07-14 18:57 | PDOC DISCHARGE SUMMARY ---
Impression - Admit/DC Date/PCP Admission Date/Primary Care Provider: 07/01/20 15:34 Discharge Date: 07/12/20 - Assessment Summary: (1) Pneumonia due to COVID-19 virus Is this a current diagnosis for this admission?: Yes Plan: Status post remdesivir, ivermectin and azithromycin Decrease Solu-Medrol to daily dosing today. Continue multivitamins and zinc supplements Continue DVT prophylaxis with Lovenox (2) Acute respiratory failure with hypoxia Is this a current diagnosis for this admission?: Yes Plan: We will wean the oxygen down from 5 L to 3 L nasal cannula this morning. We will monitor her oxygenation and see if we can wean her further tomorrow. Ultimately her oxygenation has shown remarkable improvement as she was requiring BiPAP 1 week ago. (3) Transaminitis Is this a current diagnosis for this admission?: Yes (4) Hypertension Qualifiers: Hypertension type: essential hypertension Qualified Code(s): I10 - Essential (primary) hypertension Is this a current diagnosis for this admission?: Yes (5) Depression Qualifiers: Depression Type: unspecified Qualified Code(s): F32.9 - Major depressive disorder, single episode, unspecified Is this a current diagnosis for this admission?: Yes (6) Hyponatremia Is this a current diagnosis for this admission?: Yes - Additional Information Resuscitation Status: Full Code Discharge Diet: As Tolerated Discharge Activity: Activity As Tolerated Referrals: СЕРГЕЙ JOSE MD [NO LOCAL MD] - 07/23/20 9:30 am Prescriptions: Aspirin [Aspirin 81 mg Chewable Tablet] 81 mg PO DAILY 30 Days #1 pkg Melatonin [Melatonin 5 mg Tablet] 10 mg PO QHS 15 Days #15 tablet Ibuprofen [Motrin 400 mg Tablet] 400 mg PO Q8HP PRN 7 Days #21 tablet PRN Reason: Guaifenesin/Codeine Phos [Robitussin-AC Liquid 5 ml Udcup] 5 ml PO QIDP PRN 7 Days #3 udc PRN Reason: Ascorbic Acid [Vitamin C 500 mg Tablet] 500 mg PO BID 30 Days #60 tablet Zinc Sulfate [Zinc-220 Capsule] 220 mg PO DAILY 30 Days #30 capsule Home Medications: Clonazepam [Klonopin] 0.5 mg PO BIDP PRN 07/02/20 Ergocalciferol (Vitamin D2) [Drisdol 50,000 unit (1.25MG) Capsule] 1 cap PO ASDIR PRN 07/02/20 Lisinopril/Hydrochlorothiazide [Lisinopril-Hctz 20-25 mg Tab] 1 tab PO DAILY 07/02/20 Omeprazole 20 mg PO DAILY 07/02/20 Ondansetron [Zofran Odt 4 mg Tablet] 4 mg PO Q6HP PRN 07/02/20 Zolpidem Tartrate [Ambien Cr] 12.5 mg PO DAILY 07/02/20 Ascorbic Acid [Vitamin C 500 mg Tablet] 500 mg PO BID 30 Days #60 tablet 07/12/20 Aspirin [Aspirin 81 mg Chewable Tablet] 81 mg PO DAILY 30 Days #1 pkg 07/12/20 Guaifenesin/Codeine Phos [Robitussin-AC Liquid 5 ml Udcup] 5 ml PO QIDP PRN 7 Days #3 udc 07/12/20 Ibuprofen [Motrin 400 mg Tablet] 400 mg PO Q8HP PRN 7 Days #21 tablet 07/12/20 Melatonin [Melatonin 5 mg Tablet] 10 mg PO QHS 15 Days #15 tablet 07/12/20 Zinc Sulfate [Zinc-220 Capsule] 220 mg PO DAILY 30 Days #30 capsule 07/12/20 History of Present Illiness History of Present Illness: SERGIO BASHIR is a 49 year old female, with a past medical history of hypertension and depression who tested positive for Covid several weeks ago. She states over the last several days she has been noticing increasing shortness of breath. Yesterday the shortness of breath was more pronounced now as well as her cough. She reports coughing up some brownish tinged mucus with occasional blood streaks. Although short of breath she was able to rest and recover after 10 to 20 minutes but today the shortness of breath was worse and she presented to the emergency room. Imaging reveals Covid pneumonia. Hospital Course Hospital Course: Patient was admitted for COVID pneumonia treatment. She received remdesivir, ivermectin, steroids and azithro. O2 needs eventually decreased from BIpap on admission to nasal cannula. She was discharged on home O2 mainly fro desaturation when she ambulates, also discharged on aspirin for 30 days and prednisone for 1 more week. Physical Exam Vital Signs: Temp Pulse Resp BP Pulse Ox 97.9 F 81 18 98/58 L 94 07/12/20 14:15 07/12/20 14:15 07/12/20 14:15 07/12/20 04:39 07/12/20 14:15 General appearance: PRESENT: cooperative, mild distress Head exam: PRESENT: atraumatic, normocephalic Eye exam: PRESENT: EOMI, PERRLA Mouth exam: PRESENT: moist Neck exam: PRESENT: full ROM Respiratory exam: PRESENT: clear to auscultation kevin, symmetrical, unlabored Cardiovascular exam: PRESENT: RRR, +S1, +S2 Pulses: PRESENT: +2 pedal pulses bilateral GI/Abdominal exam: PRESENT: normal bowel sounds, soft. ABSENT: rebound, tenderness Extremities exam: PRESENT: full ROM Musculoskeletal exam: PRESENT: full ROM Neurological exam: PRESENT: alert, awake, oriented to person, oriented to place, oriented to time, oriented to situation Psychiatric exam: PRESENT: normal mood Skin exam: PRESENT: normal color Results Laboratory Results: WBC 15.1 10^3/uL (4.0-10.5) H 07/11/20 05:16 RBC 4.02 10^6/uL (3.72-5.28) 07/11/20 05:16 Hgb 13.4 g/dL (12.0-15.5) 07/11/20 05:16 Hct 39.7 % (36.0-47.0) 07/11/20 05:16 MCV 99 fl (80-97) H 07/11/20 05:16 MCH 33.3 pg (27.0-33.4) 07/11/20 05:16 MCHC 33.7 g/dL (32.0-36.0) 07/11/20 05:16 RDW 15.8 % (11.5-14.0) H 07/11/20 05:16 Plt Count 668 10^3/uL (150-450) H 07/11/20 05:16 Lymph % (Auto) 8.8 % (13-45) L 07/02/20 05:38 [place] % (Auto) 6.8 % (3-13) 07/02/20 05:38 Eos % (Auto) 0.0 % (0-6) 07/02/20 05:38 Baso % (Auto) 0.3 % (0-2) 07/02/20 05:38 Absolute Neuts (auto) 7.1 10^3/uL (1.7-8.2) 07/02/20 05:38 Absolute Lymphs (auto) 0.7 10^3/uL (0.5-4.7) 07/02/20 05:38 Absolute Monos (auto) 0.6 10^3/uL (0.1-1.4) 07/02/20 05:38 Absolute Eos (auto) 0.0 10^3/uL (0.0-0.6) 07/02/20 05:38 Absolute Basos (auto) 0.0 10^3/uL (0.0-0.2) 07/02/20 05:38 Seg Neutrophils % 84.1 % (42-78) H 07/02/20 05:38 PT 12.5 SEC (11.4-15.4) 07/01/20 10:40 INR 0.91 07/01/20 10:40 D-Dimer 0.56 ug/mL (0.00-0.50) H 07/09/20 03:51 Carbonic Acid 0.98 mmol/L (1.05-1.35) L 07/01/20 14:25 HCO3/H2CO3 Ratio 20:1 07/01/20 14:25 ABG pH 7.40 (7.35-7.45) 07/01/20 14:25 ABG pCO2 32.5 mmHg (35-45) L 07/01/20 14:25 ABG pO2 86.5 mmHg (80-100) 07/01/20 14:25 ABG HCO3 19.6 mmol/L (20-24) L 07/01/20 14:25 ABG Total CO2 20.6 mmol/L (21-25) L 07/01/20 14:25 ABG O2 Saturation 96.7 % (94-98) 07/01/20 14:25 ABG Base Excess -4.1 mmol/L 07/01/20 14:25 VBG pH 7.37 (7.30-7.42) 07/01/20 10:40 VBG pCO2 37.7 mmHg (35-63) 07/01/20 10:40 VBG HCO3 21.5 mmol/L (20-32) 07/01/20 10:40 VBG Base Excess -3.2 mmol/L 07/01/20 10:40 FiO2 45% 07/01/20 14:25 Sodium 138.7 mmol/L (137-145) 07/09/20 03:51 Potassium 3.9 mmol/L (3.6-5.0) 07/09/20 03:51 Chloride 106 mmol/L (98-107) 07/09/20 03:51 Carbon Dioxide 22 mmol/L (22-30) 07/09/20 03:51 Anion Gap 11 (5-19) 07/09/20 03:51 BUN 20 mg/dL (7-20) 07/09/20 03:51 Creatinine 0.72 mg/dL (0.52-1.25) 07/09/20 03:51 Est GFR ( Amer) > 60 (>60) 07/09/20 03:51 Est GFR (MDRD) Non-Af > 60 (>60) 07/09/20 03:51 Glucose 148 mg/dL (75-110) H 07/09/20 03:51 Lactic Acid 1.9 mmol/L (0.7-2.1) 07/01/20 10:40 Calcium 9.4 mg/dL (8.4-10.2) 07/09/20 03:51 Magnesium 2.4 mg/dL (1.6-2.3) H 07/03/20 04:14 Ferritin 50.30 ng/mL (6.2-137.0) 07/09/20 03:51 Total Bilirubin 0.4 mg/dL (0.2-1.3) 07/09/20 03:51 Direct Bilirubin 0.3 mg/dL (0.0-0.4) 07/09/20 03:51 Neonat Total Bilirubin Not Reportable 07/09/20 03:51 Neonat Direct Bilirubin Not Reportable 07/09/20 03:51 Neonat Indirect Bili Not Reportable 07/09/20 03:51 AST 34 U/L (14-36) 07/09/20 03:51 ALT 48 U/L (<35) H 07/09/20 03:51 Alkaline Phosphatase 86 U/L (38-126) 07/09/20 03:51 Lactate Dehydrogenase 765 U/L (120-246) H 07/03/20 04:14 C-Reactive Protein 53.2 mg/L (<10.0) H 07/09/20 03:51 NT-Pro-B Natriuret Pep 158 pg/mL (<125) H 07/01/20 10:40 Total Protein 6.3 g/dL (6.3-8.2) 07/09/20 03:51 Albumin 3.1 g/dL (3.5-5.0) L 07/09/20 03:51 Urine Color YELLOW 07/11/20 06:00 Urine Appearance CLEAR 07/11/20 06:00 Urine pH 7.0 (5.0-9.0) 07/11/20 06:00 Ur Specific [place] 1.015 07/11/20 06:00 Urine Protein NEGATIVE mg/dL (NEGATIVE) 07/11/20 06:00 Urine Glucose (UA) NEGATIVE mg/dL (NEGATIVE) 07/11/20 06:00 Urine Ketones NEGATIVE mg/dL (NEGATIVE) 07/11/20 06:00 Urine Blood NEGATIVE (NEGATIVE) 07/11/20 06:00 Urine Nitrite NEGATIVE (NEGATIVE) 07/11/20 06:00 Urine Bilirubin NEGATIVE (NEGATIVE) 07/11/20 06:00 Urine Urobilinogen NEGATIVE mg/dL (<2.0) 07/11/20 06:00 Ur Leukocyte Esterase NEGATIVE (NEGATIVE) 07/11/20 06:00 Urine WBC (Auto) 0 /HPF 07/09/20 06:05 Urine RBC (Auto) 0 /HPF 07/11/20 06:00 U Hyaline Cast (Auto) 1 /LPF 07/04/20 05:44 Urine Bacteria (Auto) TRACE /HPF 07/04/20 05:44 Squamous Epi Cells Auto 2 /HPF 07/11/20 06:00 Urine Mucus (Auto) RARE /LPF 07/11/20 06:00 Urine Ascorbic Acid 40 (NEGATIVE) H 07/11/20 06:00 Influenza A (Rapid) NEGATIVE (NEGATIVE) 07/01/20 11:37 Influenza A (RT-PCR) NEGATIVE (NEGATIVE) 07/01/20 12:13 Influenza B (Rapid) NEGATIVE (NEGATIVE) 07/01/20 11:37 Influenza B (RT-PCR) NEGATIVE (NEGATIVE) 07/01/20 12:13 RSV (RT-PCR) NEGATIVE (NEGATIVE) 07/01/20 12:13 SARS-CoV-2 Rap RNA(RT-PCR) POSITIVE (NEGATIVE) H 07/01/20 12:13 Group A Strep Rapid NEGATIVE (NEGATIVE) 07/01/20 11:37 07/01/20 10:40 NT-Pro-B Natriuret Pep 158 H Impressions: Chest X-Ray 07/01/20 10:12 IMPRESSION: Limited examination. Favor hazy opacification of the right hemithorax to be on the basis of artifact ; acute pulmonary process is not excluded. Recommend dedicated PA/Lat chest imaging when feasible. Chest/Abdomen CTA 07/01/20 12:02 IMPRESSION: 1. Diffuse ground-glass attenuation throughout both lungs, consistent with multifocal pneumonia. Several areas demonstrate discrete solid nodularity. A follow-up CT of the chest in 3 months is recommended to confirm complete resolution. Commonly reported imaging features of COVID-19 pneumonia are present. Other processes such as influenza pneumonia and organizing pneumonia, as can be seen with drug toxicity and connective tissue disease, can cause a similar imaging pattern. PneTyp 2. Severe hepatic steatosis. 3. Small hiatal hernia. 4. No pulmonary embolism. Plan Plan of Treatment: - wean off O2 as tolerated - ff.up with PCP Stroke Is this a Stroke Patient?: No Acute Heart Failure Is this a Heart Failure Patient?: No
== END 2020-07-12 18:01 | disposition home health service (06) | DRG 177 ==
LOC: ER 09:51 → EH 15:34 → 3N 07-02 12:02
PROVIDERS: ADMIT Hospitalist; ATTEND Internal Medicine
PROC: 5A09557 Assistance with Respiratory Ventilation, Greater than 96 Consecutive Hours, Continuous Positive Airway Pressure (ICD-10-PCS; 2020-07-01)
PROC: XW033E5 Introduction of Remdesivir Anti-infective into Peripheral Vein, Percutaneous Approach, New Technology Group 5 (ICD-10-PCS; principal; 2020-07-02)
DX: U07.1 COVID-19 (principal); J12.82 Pneumonia due to coronavirus disease 2019; J96.01 Acute respiratory failure with hypoxia; E87.1 Hypo-osmolality and hyponatremia; R74.01 Elevation of levels of liver transaminase levels; F32.9 Major depressive disorder, single episode, unspecified; Z79.82 Long term (current) use of aspirin; Z79.1 Long term (current) use of non-steroidal anti-inflammatories (NSAID); I10 Essential (primary) hypertension; E87.6 Hypokalemia; E83.51 Hypocalcemia; R19.7 Diarrhea, unspecified; Z23 Encounter for immunization
CPT/HCPCS: 36415; 36600; 71045; 71275; 80053; 81001; 82728; 82803; 83605; 83615; 83735; 83880; 85025; 85027; 85379; 85610; 86140; 87040; 87070; 87804; 87880; 90471; 90686; 93005; 93010; 94660; 96361; 96374; 96375; 99285; 0241U; C9803; G0008; J0610; J0696; J1100; J1650; J1885; J2270; J2920; J3480; J3490; J7030; J7050